=== PATIENT | male | born 1945 | race Caucasian/White ===

== ENCOUNTER 2018-02-20 14:46 | Inpatient (IN) | payer MEDICARE ==
[2018-02-20] VITALS (11 sets, daily range): BP systolic 112–148; BP diastolic 54–76; PULSE 58–70; RESP 18–20; TEMP 98; O2SAT 92–98
[~2018-02-20] VITALS: Ht 175.3 cm; Wt 93.5 kg
--- NOTE | 2018-02-20 15:12 | PD ---
HPI Chief Complaint: Chest Pain Time Seen by Provider: 14:49 Travel History International Travel<30 days: No Contact w/Intl Traveler<30days: No Traveled to known affect area: No History of Present Illness HPI Patient is a 72-year-old male presenting to emerge from for evaluation of chest pain. Patient states it started last night after he had ingested a lot of dairy products. Shortly after it started he had to have a bowel movement but stated it was not diarrhea. He also stated he made himself vomit because he thought that would make him feel better. Despite these efforts patient continued to have anterior chest wall pain, there was no radiation, no shortness of breath, no diaphoresis no nausea. Patient reports his pain is a 3 out of 10, burning and pressure-like. He was given 324 mg of aspirin by fire rescue, he had one spray of nitroglycerin. This did not alleviate his symptoms or pain. Patient reports that he has an active lifestyle and has no activity intolerance. Symptoms are not exacerbated nor are they alleviated by anything. Symptom onset was sudden, constant in nature. PFSH Past Medical History Hypertension: Yes Renal Failure: Yes (Stage III kidney disease) Tetanus Vaccination: > 5 Years Influenza Vaccination: Yes ?: Not Past Surgical History Other Surgery: Yes (Left leg surgery) Social History Alcohol Use: Yes (seldom) Tobacco Use: No Substance Use: No Allergies-Medications (Allergen,Severity, Reaction): Coded Allergies: Penicillins (Verified Allergy, Intermediate, Swelling, 02/20/18) Review of Systems Except as stated in HPI: all other systems reviewed are Neg General / Constitutional: No: Fever Eyes: No: Blurred Vision HENT: No: Headaches, Lightheadedness Cardiovascular: Positive: Chest Pain or Discomfort, No: Palpitations, Tachycardia, Diaphoresis, Syncope, Dyspnea on exertion, Edema Respiratory: No: Cough, Shortness of Breath Gastrointestinal: Positive: Indigestion, No: Nausea, Vomiting, Diarrhea, Abdominal Pain, Loss of Appetite Neurologic: No: Dizziness, Syncope, Focal Abnormalities Physical Exam Narrative GENERAL: Well-developed, well-nourished, well-appearing male. Presenting in no acute distress. SKIN: Warm and dry. HEAD: Atraumatic. Normocephalic. EYES: Pupils equal and round. No scleral icterus. No injection or drainage. ENT: No nasal bleeding or discharge. Mucous membranes pink and moist. NECK: Trachea midline. No JVD. CARDIOVASCULAR: Regular rate and rhythm. RESPIRATORY: No accessory muscle use. Clear to auscultation. Breath sounds equal bilaterally. GASTROINTESTINAL: Abdomen soft, non-tender, nondistended. Hepatic and splenic margins not palpable. MUSCULOSKELETAL: Extremities without clubbing, cyanosis, or edema. No obvious deformities. NEUROLOGICAL: Awake and alert. No obvious cranial nerve deficits. Motor grossly within normal limits. Five out of 5 muscle strength in the arms and legs. Normal speech. PSYCHIATRIC: Appropriate mood and affect; insight and judgment normal. Data Data Last Documented VS Vital Signs Date Time Temp Pulse Resp B/P (MAP) Pulse Ox O2 Delivery O2 Flow Rate FiO2 02/20/18 16:25 60 18 148/76 (100) 98 Room Air 02/20/18 16:23 21 Orders Orders Electrocardiogram (02/20/18 14:59) Ckmb (Isoenzyme) Profile (02/20/18 14:59) Complete Blood Count With Diff (02/20/18 14:59) Comprehensive Metabolic Panel (02/20/18 14:59) Magnesium (Mg) (02/20/18 14:59) Prothrombin Time / Inr (Pt) (02/20/18 14:59) Act Partial Throm Time (Ptt) (02/20/18 14:59) Troponin I (02/20/18 14:59) Lipase (02/20/18 14:59) Ecg Monitoring (02/20/18 14:59) Bilateral Bp Monitoring (02/20/18 14:59) Iv Access Insert/Monitor (02/20/18 14:59) Oximetry (02/20/18 14:59) Oxygen Administration (02/20/18 14:59) Chest, Pa & Lat (02/20/18 14:59) CKMB (02/20/18 15:02) CKMB% (02/20/18 15:02) Nitroglycerin-D5w 50 Mg/250 Ml (Nitrogly (02/20/18 16:30) Heparin Inj (Heparin Inj) (02/20/18 16:30) Heparin-D5w 25,000 U/250 Ml (Heparin-D5w (02/20/18 16:30) Cbc No Diff, Includes Plts (02/23/18 06:00) Act Partial Throm Time (Ptt) (02/20/18 23:16) Occult Blood (Hemoccult) Stool (02/20/18 16:16) Admit Order (Ed Use Only) (02/20/18 16:34) Labs Laboratory Tests Test 02/20/18 15:02 White Blood Count 13.1 TH/MM3 Red Blood Count 4.57 MIL/MM3 Hemoglobin 13.7 GM/DL Hematocrit 40.3 % Mean Corpuscular Volume 88.3 FL Mean Corpuscular Hemoglobin 30.1 PG Mean Corpuscular Hemoglobin Concent 34.0 % Red Cell Distribution Width 13.6 % Platelet Count 205 TH/MM3 Mean Platelet Volume 9.0 FL Neutrophils (%) (Auto) 73.7 % Lymphocytes (%) (Auto) 20.3 % Monocytes (%) (Auto) 5.7 % Eosinophils (%) (Auto) 0.2 % Basophils (%) (Auto) 0.1 % Neutrophils # (Auto) 9.7 TH/MM3 Lymphocytes # (Auto) 2.7 TH/MM3 Monocytes # (Auto) 0.8 TH/MM3 Eosinophils # (Auto) 0.0 TH/MM3 Basophils # (Auto) 0.0 TH/MM3 CBC Comment DIFF FINAL Differential Comment Prothrombin Time 10.4 SEC Prothromb Time International Ratio 1.0 RATIO Activated Partial Thromboplast Time 27.9 SEC Blood Urea Nitrogen 21 MG/DL Creatinine 1.59 MG/DL Random Glucose 147 MG/DL Total Protein 7.0 GM/DL Albumin 3.4 GM/DL Calcium Level 7.9 MG/DL Magnesium Level 2.2 MG/DL Alkaline Phosphatase 77 U/L Aspartate Amino Transf (AST/SGOT) 348 U/L Alanine Aminotransferase (ALT/SGPT) 55 U/L Total Bilirubin 0.5 MG/DL Sodium Level 138 MEQ/L Potassium Level 4.1 MEQ/L Chloride Level 104 MEQ/L Carbon Dioxide Level 24.8 MEQ/L Anion Gap 9 MEQ/L Estimat Glomerular Filtration Rate 43 ML/MIN Total Creatine Kinase 2178 U/L Creatine Kinase MB 368.6 NG/ML Creatine Kinase MB % 16.9 % Troponin I GREATER THAN 40.00 NG/ML Lipase 171 U/L MDM Medical Decision Making Medical Screen Exam Complete: Yes Emergency Medical Condition: Yes Interpretation(s) Vital Signs Date Time Temp Pulse Resp B/P (MAP) Pulse Ox O2 Delivery O2 Flow Rate FiO2 02/20/18 15:03 98 Room Air 02/20/18 15:03 98 Room Air 02/20/18 14:57 68 96 02/20/18 14:57 64 18 124/62 (82) 98 Room Air 02/20/18 14:50 62 18 124/62 (82) 96 Differential Diagnosis ACS versus USA versus indigestion versus metabolic abnormality versus arrhythmia versus other Narrative Course Patient is a 72-year-old male presenting to the emergency department for evaluation of chest pain. Patient's vital signs are stable, IV access was established, patient placed on telemetry monitoring continuous pulse oximetry. Patient was given nitroglycerin and aspirin by [facility]. Labs and imaging ordered and pending. Chest x-ray shows no acute disease. CBC with a white count of 13.1 with slight left shift Chemistry with BUN and creatinine 21/1.59, AST 348, CK 2178 Troponin resulted greater than 40, CK-MB is 16.9, these findings were relayed to my attending physician who then discussed with on-call ciaio counter molder. A STEMI alert was activated. Please see his documentation. A nitroglycerin drip as well as heparin drip was ordered. Diagnosis Primary Impression: NSTEMI (non-ST elevated myocardial infarction) Admitting Information Admitting Physician Requests: Admit Condition: Stable Steph Boswell Feb 20, 2018 15:12
[2018-02-20 15:24] LABS: AUTOMATED NEUTROPHIL # 9.7 TH/MM3 (1.8-7.7); BASOPHIL % 0.1 % (0.0-2.0); EOSINOPHIL % 0.2 % (0.0-4.0); HEMATOCRIT 40.3 % (39.0-51.0); HEMOGLOBIN 13.7 GM/DL (13.0-17.0); LYMPH % 20.3 % (9.0-44.0); LYMPHOCYTE # 2.7 TH/MM3 (1.0-4.8); MEAN CELL VOLUME 88.3 FL (80.0-100.0); MEAN CORPUSCULAR HEMOGLOBIN 30.1 PG (27.0-34.0); MONO % 5.7 % (0.0-8.0); MONOCYTE # 0.8 TH/MM3 (0-0.9); NEUT % 73.7 % (16.0-70.0); PLATELET COUNT 205 TH/MM3 (150-450); RED BLOOD COUNT 4.57 MIL/MM3 (4.50-5.90); RED CELL DISTRIBUTION WIDTH 13.6 % (11.6-17.2); WHITE BLOOD COUNT 13.1 TH/MM3 (4.0-11.0)
--- NOTE | 2018-02-20 15:24 | RADRPT ---
EXAM DATE: 02/20/2018 3:21 PM EDT AGE/SEX: 72 years / Male INDICATIONS: Chest pain. CLINICAL DATA: This is the patient's initial encounter. Patient reports that signs and symptoms have been present for 1 day and indicates a pain score of 5/10. MEDICAL/SURGICAL HISTORY: Hypertension. . ORIF Left Tib/Fib. COMPARISON: No prior exams available for comparison. FINDINGS: PA and lateral views of the chest demonstrate the lungs to be symmetrically aerated without evidence of mass, infiltrate or effusion. No evidence of pneumothorax. The cardiomediastinal contours are unre markable. Mild degenerative changes throughout the thoracic spine.. CONCLUSION: The lungs are clear. Electronically signed by: Gabe Villanueva MD 02/20/2018 3:23 PM EDT
[2018-02-20 15:44] LABS: ALBUMIN 3.4 GM/DL (3.4-5.0); ALT (GPT) 55 U/L (12-78); AST (GOT) 348 U/L (15-37); BICARBONATE 24.8 MEQ/L (21.0-32.0); BLOOD UREA NITROGEN 21 MG/DL (7-18); CALCIUM 7.9 MG/DL (8.5-10.1); CHLORIDE 104 MEQ/L (98-107); CREATININE 1.59 MG/DL (0.60-1.30); GLOMERULAR FILTRATION RATE 43 ML/MIN (>89); GLUCOSE,RANDOM 147 MG/DL (74-106); MAGNESIUM 2.2 MG/DL (1.5-2.5); SODIUM (NA) 138 MEQ/L (136-145)
[2018-02-20 15:48] LABS: PROTHROMBIN TIME - PATIENT 10.4 SEC (9.8-11.6)
[2018-02-20 15:58] LABS: ALKALINE PHOSPHATASE 77 U/L (45-117); TOTAL BILIRUBIN ADULT 0.5 MG/DL (0.2-1.0)
[2018-02-20 16:05] LABS: TROPONIN I GREATER THAN 40.00 NG/ML (0.02-0.05)
--- NOTE | 2018-02-20 16:28 | PD ---
Physical Exam Date Seen by Provider: Feb 20, 2018 Time Seen by Provider: 16:22 Narrative The patient is a 72-year-old male who was initially evaluated by the mid-level provider. Please refer to the initial history, physical, diagnostic evaluation , and treatment modality plan. Data Data Last Documented VS Vital Signs Date Time Temp Pulse Resp B/P (MAP) Pulse Ox O2 Delivery O2 Flow Rate FiO2 02/20/18 15:03 98 Room Air 02/20/18 15:03 02/20/18 14:57 68 02/20/18 14:57 18 Orders Orders Electrocardiogram (02/20/18 14:59) Ckmb (Isoenzyme) Profile (02/20/18 14:59) Complete Blood Count With Diff (02/20/18 14:59) Comprehensive Metabolic Panel (02/20/18 14:59) Magnesium (Mg) (02/20/18 14:59) Prothrombin Time / Inr (Pt) (02/20/18 14:59) Act Partial Throm Time (Ptt) (02/20/18 14:59) Troponin I (02/20/18 14:59) Lipase (02/20/18 14:59) Ecg Monitoring (02/20/18 14:59) Bilateral Bp Monitoring (02/20/18 14:59) Iv Access Insert/Monitor (02/20/18 14:59) Oximetry (02/20/18 14:59) Oxygen Administration (02/20/18 14:59) Chest, Pa & Lat (02/20/18 14:59) CKMB (02/20/18 15:02) CKMB% (02/20/18 15:02) Nitroglycerin-D5w 50 Mg/250 Ml (Nitrogly (02/20/18 16:30) Heparin Inj (Heparin Inj) (02/20/18 16:30) Heparin-D5w 25,000 U/250 Ml (Heparin-D5w (02/20/18 16:30) Cbc No Diff, Includes Plts (02/23/18 06:00) Act Partial Throm Time (Ptt) (02/20/18 23:16) Occult Blood (Hemoccult) Stool (02/20/18 16:16) Labs Laboratory Tests Test 02/20/18 15:02 White Blood Count 13.1 TH/MM3 Red Blood Count 4.57 MIL/MM3 Hemoglobin 13.7 GM/DL Hematocrit 40.3 % Mean Corpuscular Volume 88.3 FL Mean Corpuscular Hemoglobin 30.1 PG Mean Corpuscular Hemoglobin Concent 34.0 % Red Cell Distribution Width 13.6 % Platelet Count 205 TH/MM3 Mean Platelet Volume 9.0 FL Neutrophils (%) (Auto) 73.7 % Lymphocytes (%) (Auto) 20.3 % Monocytes (%) (Auto) 5.7 % Eosinophils (%) (Auto) 0.2 % Basophils (%) (Auto) 0.1 % Neutrophils # (Auto) 9.7 TH/MM3 Lymphocytes # (Auto) 2.7 TH/MM3 Monocytes # (Auto) 0.8 TH/MM3 Eosinophils # (Auto) 0.0 TH/MM3 Basophils # (Auto) 0.0 TH/MM3 CBC Comment DIFF FINAL Differential Comment Prothrombin Time 10.4 SEC Prothromb Time International Ratio 1.0 RATIO Activated Partial Thromboplast Time 27.9 SEC Blood Urea Nitrogen 21 MG/DL Creatinine 1.59 MG/DL Random Glucose 147 MG/DL Total Protein 7.0 GM/DL Albumin 3.4 GM/DL Calcium Level 7.9 MG/DL Magnesium Level 2.2 MG/DL Alkaline Phosphatase 77 U/L Aspartate Amino Transf (AST/SGOT) 348 U/L Alanine Aminotransferase (ALT/SGPT) 55 U/L Total Bilirubin 0.5 MG/DL Sodium Level 138 MEQ/L Potassium Level 4.1 MEQ/L Chloride Level 104 MEQ/L Carbon Dioxide Level 24.8 MEQ/L Anion Gap 9 MEQ/L Estimat Glomerular Filtration Rate 43 ML/MIN Total Creatine Kinase 2178 U/L Troponin I GREATER THAN 40.00 NG/ML Lipase 171 U/L [facility] Medical Record Reviewed: Yes Supervised Visit with KYMBERLY: Yes Interpretation(s) EKG reveals sinus bradycardia with a heart rate of 58. Q-wave in lead II, III, and aVF with hyper acute T waves in V2. Last Impressions Chest X-Ray 02/20/18 9622 Signed Impressions: CONCLUSION: The lungs are clear. Laboratory Tests Test 02/20/18 15:02 White Blood Count 13.1 TH/MM3 Red Blood Count 4.57 MIL/MM3 Hemoglobin 13.7 GM/DL Hematocrit 40.3 % Mean Corpuscular Volume 88.3 FL Mean Corpuscular Hemoglobin 30.1 PG Mean Corpuscular Hemoglobin Concent 34.0 % Red Cell Distribution Width 13.6 % Platelet Count 205 TH/MM3 Mean Platelet Volume 9.0 FL Neutrophils (%) (Auto) 73.7 % Lymphocytes (%) (Auto) 20.3 % Monocytes (%) (Auto) 5.7 % Eosinophils (%) (Auto) 0.2 % Basophils (%) (Auto) 0.1 % Neutrophils # (Auto) 9.7 TH/MM3 Lymphocytes # (Auto) 2.7 TH/MM3 Monocytes # (Auto) 0.8 TH/MM3 Eosinophils # (Auto) 0.0 TH/MM3 Basophils # (Auto) 0.0 TH/MM3 CBC Comment DIFF FINAL Differential Comment Prothrombin Time 10.4 SEC Prothromb Time International Ratio 1.0 RATIO Activated Partial Thromboplast Time 27.9 SEC Blood Urea Nitrogen 21 MG/DL Creatinine 1.59 MG/DL Random Glucose 147 MG/DL Total Protein 7.0 GM/DL Albumin 3.4 GM/DL Calcium Level 7.9 MG/DL Magnesium Level 2.2 MG/DL Alkaline Phosphatase 77 U/L Aspartate Amino Transf (AST/SGOT) 348 U/L Alanine Aminotransferase (ALT/SGPT) 55 U/L Total Bilirubin 0.5 MG/DL Sodium Level 138 MEQ/L Potassium Level 4.1 MEQ/L Chloride Level 104 MEQ/L Carbon Dioxide Level 24.8 MEQ/L Anion Gap 9 MEQ/L Estimat Glomerular Filtration Rate 43 ML/MIN Total Creatine Kinase 2178 U/L Troponin I GREATER THAN 40.00 NG/ML Lipase 171 U/L Differential Diagnosis Differential diagnosis includes STEMI, acute coronary syndrome, subacute STEMI, pericardial effusion, pleural effusion, pneumonia, pulmonary embolism, esophageal spasm, gastritis, pancreatitis. Narrative Course The patient was initially evaluated by the mid-level provider. Please refer to the initial history, physical, diagnostic evaluation, treatment modality plan. The patient is currently visiting from [place]. He was eating yogurt yesterday when he developed some substernal to right-sided chest pain. He describes the pain as a dull pressure-like sensation. The patient states he tried to induce vomiting because he thought it was food poisoning secondary to eating the yogurt. He also had to have a bowel movement immediately, felt like he was having food poisoning. He then became diaphoretic. The patient states he went to bed last night with chest pain and when he awakened this morning he continued to have chest pain. The chest pain is located in the right aspect of the chest, as described as a "elephant sitting on my chest ", and radiating to the arms bilaterally. He denies any nausea or shortness of breath today. He does have a history of CKD and hypertension but denies any history of known hyperlipidemia, he quit smoking 10 tobacco 10 years ago, and is described as a borderline diabetic. He denies any known history of coronary artery disease or previous myocardial infarction. He does not have a local primary physician. The patient was initially brought in by EMS who gave her nitroglycerin with no relief of his pain and aspirin. The patient was then evaluated by the mid- level provider. EKG did reveal Q waves in lead II, III, and aVF, no old EKGs to compare. He did have a peaked T-wave in V2 not seen in other leads. The patient's troponin was noted to be greater than 40, I discussed the patient with Dr. Flores who requested we call a STEMI alert the patient could go to [facility] immediately. The patient was administered a heparin bolus and placed on a nitro drip. I discussed the findings with family, patient will be admitted. Critical Care Narrative Aggregate critical care time was 35 minutes. Time to perform other separately billable procedures was not included in the critical care time. My time did not include minutes spent treating any other patients simultaneously or on activities that did not directly contribute to the patient's treatment. The services I provided to this patient were to treat and/or prevent clinically significant deterioration that could result in: Arrhythmia, ventricular aneurysm , ventricular rupture, sudden . I provided critical care services requiring my management, as noted below: Chart data review, documentation time, medication orders and management, vital sign assessments/reviewing monitor data, ordering and reviewing lab tests, ordering and interpreting/reviewing x-rays and diagnostic studies, care of the patient and discussion of the patient with the admitting physicians. Physician Communication Physician Communication I discussed the patient with Dr. Flores her request because STEMI so patient go go immediately to the [facility] Director, he does have a hyperacute T-wave in V2, I believe this is reasonable. Diagnosis Primary Impression: NSTEMI (non-ST elevated myocardial infarction) Admitting Information Admitting Physician Requests: Admit Condition: Stable Domenic Blankenship MD Feb 20, 2018 16:28
[2018-02-20] MEDS ORDERED: NITROGLYCERIN-D5W 50 MG/250 ML 250 ML IV PRN (16:30)
[2018-02-20] MEDS ORDERED: HEPARIN-D5W 25,000 U/250 ML 250 ML IV PRN (16:30)
[2018-02-20] MEDS ORDERED: HEPARIN SODIUM - IV 10,000 UNITS/10 ML VIAL IV PUSH ONE (16:30)
[2018-02-20] MEDS ORDERED: MIDAZOLAM HCL 2 MG/2 ML VIAL ONE (16:43)
[2018-02-20] MEDS ORDERED: HEPARIN-NS/PF INJ 1,000 ML ONE (16:43)
[2018-02-20] MEDS ORDERED: HEPARIN SODIUM - IV 10,000 UNITS/10 ML VIAL ONE (16:44)
--- NOTE | 2018-02-20 17:40 | MB ---
cc: Epi Flores MD, Arthur W MD DATE: 02/20/2018 HISTORY OF PRESENT ILLNESS: Van is a very pleasant 71-year-old gentleman visiting here from [place]. He was eating yogurt last night and developed chest pain. It lasted through the night and into today. He came to the ER, still having chest pain though improved. He is somewhat of an unforthcoming historian. He appears comfortable, in no acute distress. He was found to have a troponin of 40 in the ER, Q-waves in the inferior leads. He otherwise denies any fevers, chills, cough, GI or bleeding, paroxysmal nocturnal dyspnea, orthopnea, syncope or dizziness. PAST MEDICAL HISTORY: Per history of present illness. He has a history of hypertension, stage III chronic renal insufficiency. SOCIAL HISTORY: Seldom drinks alcohol. Denies tobacco use. ALLERGIES: PENICILLIN. MEDICATIONS: Given in the ER, aspirin, heparin bolus and drip, nitro drip. PHYSICAL EXAMINATION: VITAL SIGNS: Blood pressure 148/86, pulse 86, respiratory rate 18, saturations 98% on room air. GENERAL: He is alert and oriented x3, in no acute distress. NECK: Supple. No JVD. No bruit. CARDIOVASCULAR: S1, S2. No murmurs, rubs, gallops. LUNGS: Clear to auscultation bilaterally. ABDOMEN: Soft, nontender, nondistended with positive bowel sounds. EXTREMITIES: No lower extremity edema. IMAGING STUDIES: Chest x-ray shows the lungs are clear. CARDIOLOGY STUDIES: EKG shows normal sinus rhythm at 58 beats per minute, Q-waves in the inferior leads with T-wave inversion in lead 3 and aVF. LABORATORY DATA: White count 13.1, hemoglobin 13.7, hematocrit 40.3, platelet count is 205. Sodium 138, potassium 4.1, chloride 104, bicarbonate 24.8, BUN 21, creatinine 1.59. AST is 348, ALT 55. CK is 2178, CK-MB percent is 16.9%. Troponin is 40.0. INR is 1.0. DIAGNOSES: Subacute ST elevation myocardial infarction. The patient already has Q-waves in the inferior leads with T-wave inversions; however, he is still having active chest pain. Therefore, I do think left heart catheterization is emergently indicated. STEMI has been called. He has received aspirin, heparin, IV nitro in the emergency room. Further recommendations based on the details of his cardiac catheterization. Also note, the patient is being prebolused with 1 liter of normal saline prior to catheterization. MD GINNA Koenig/ , 05:15 PM , 05:39 PM
[2018-02-20] MEDS ORDERED: TIROFIBAN INFUSION INJ 250 ML IV ONE (18:19)
[2018-02-20] MEDS ORDERED: PRASUGREL 10 MG TAB ONE (18:20)
--- NOTE | 2018-02-20 19:37 | CATHPROC ---
[facility] HIS Report Study Information Study Number Admission Scheduled Start Study Start [id number] Feb 20 2018 2:46PM 02/20/2018 Feb 20 2018 4:45PM [place] [facility] Cardiac Catheterization Admit Source Facility Department Emergency department [facility] - Index Editor Physician and Clinical Staff Initial Epi Anderson Backshoe Person Mayra Victoria,TERELL Backshoe PersonNaty Robles,TERELL Recorder Edna Duron,RT(R) Scrub Elaine Paris ,RT(R) Procedures Performed Procedure Location (Site) Vessel Name Angiogram LV Asc. Aorta (A) Coronary Angiograms LCA Left Coronary L Heart Cath LV Gram-hand inj. LV LV Ventricle PTCA CIRC Mid CIRC PTCA RCA Dist Right Coronary Stent CIRC Mid CIRC Stent RCA Dist Right Coronary Wire insertion Fem Art (right) Femoral Art Equipment Time Optical Designer Description Size Mfg Part Number Used/Scraped [id number] 17:50 [employer] WIRE, ASAHI PROWATER 180CM 180CM Used *[id number] 18:40 [employer] WIRE, ASAHI PROWATER 180CM 180CM Used *[id number] TRANSDUCER, TRUWAVE [id number] 16:52 PENA HENNESSY * Used W/STOCKCOCK *[id number] 17:56 [employer]IRE, CHOICE PT 182CM 182CM Used *0827631 538-476 *1752637 [phone] *6019549 538-446 *0107893 [phone] *2041640 538-448 *1446533 [phone] *7788638 538-420 *4110442 538-421 *3998459 538-442 *6756388 538-453S *2814906 [phone] *[id number] MEDICAL CONCEPT DRAPE, RADIAL FEMORAL FULL 18:05 * [id number] *[id number] Used DEVELOPMENT BODY [id number] 16:52 [employer] INDUSTRIES BLANKET,WARM AIR CCL * Used *[id number] [id number] 16:52 [employer] INDUSTRIES PACK, CCL CUSTOM * Used *3542454 [id number] 16:52 MEDLINE PACER PEN, SKIN DUAL W/ RULER * Used *[id number] [id number] 17:55 MEDTRONIC BALLOON, 2.5 X 10MM EUPHORA 10MM Used *6003272 [id number] 18:55 MEDTRONIC BALLOON, 2.5 X 10MM EUPHORA 10MM Used *0416960 [id number] 19:03 MEDTRONIC STENT, 2.5 22 INTEGRITY 2.5 22 Used *0348233 [id number] 18:18 MEDTRONIC STENT, 2.5 8 INTEGRITY 2.5 8 Used *5781427 [id number] 18:13 MEDTRONIC STENT, 2.5 8 INTEGRITY 2.5 8 Used *5616775 [id number] 19:12 MEDTRONIC STENT, 2.5 8 INTEGRITY 2.5 8 Used *3017499 [id number] 18:06 [employer] MEDICAL 30 CORTEZ INDEFLATOR Used *1786937 [id number] 17:52 [employer] SHEATH, FR6.5 PRELUDE 11CM FR 6.5 038ACT Used *9076917 [id number] 16:52 [employer] WIRE, 3MMJ .035 180CM 180CM Used *4060289 [id number] 16:52 NAMIC MANIFOLD, 4 PORT * Used *2816447 [id number] 17:45 NAMIC MANIFOLD, 4 PORT * Used *[id number] 18:03 [employer] OMNIPAQUE, 350 MG, 150ML 150ML [id number] Used 16:52 [employer] OMNIPAQUE, 350 MG, 150ML 150ML [id number] Used 19:08 [employer]ED OMNIPAQUE, 350 MG, 150ML 150ML [id number] Used 19:11 [employer]ED OMNIPAQUE, 350 MG, 150ML 150ML [id number] Used 18:41 [employer]COMED OMNIPAQUE, 350 MG, 150ML 150ML [id number] Used 18:15 NYCOMED OMNIPAQUE, 350 MG, 50ML 50ML [id number] Used [id number] 16:52 TERUMO MEDICAL SHEATH, FR4 TERUMO (10CM) FR 4 Used *[id number] Equipment Model, Serial, Lot Number and Expiration Data Description Model Number Serial Number Lot Number Expiration Date STENT, 2.5 22 INTEGRITY [id number] 06-22-2019 STENT, 2.5 8 INTEGRITY [id number] 12-22-2019 STENT, 2.5 8 INTEGRITY [id number] 05-22-2019 STENT, 2.5 8 INTEGRITY [id number] 12-22-2019 WIRE, CHOICE PT 182CM [id number] 10-13-2019 History: Allergies Allergy Reaction Penicillins Swelling History: Stress Tests Stress or Imaging Studies Performed No Labs Hgb (g/dl) Hct (%) WBC (l/cumm) Platelets (thousands) 11.60-17.00 35.00-51.00 4.00-11.00 150.00-450.00 13.7 40.3 13.1 205 Glucose (mg/dl) BUN (mg/dl) Creatinine (mg/dl) BUN:Creatinine (1:x) 74.00-106.00 7.00-18.00 0.50-1.30 10.00-20.00 147 21 1.6 13.1 Na (meq/l) K (meq/l) 136.00-145.00 3.50-5.10 138 4.1 INR (PTT:PT) 0.90-1.10 1 Troponin I (ng/ml) CPK (u/l) CPK-MB (ng/ML) 0.02-0.05 26.00-308.00 0.50-3.60 40 368 16.9 Medication Medication Total Dose (Bolus/Oral) Medication Total Dosage/Unit 1% XYLOCAINE 20 mL AGGRASTAT BOLUS 46 mL EFFIENT 600 mg FENTANYL 50 mcg HEPARIN 6000 units OXYGEN 3 l/min VERSED 2 mg Medications (Bolus/Oral) Medication Time Given Dosage/Unit Administered By Reason 1% XYLOCAINE 02/20/2018 5:05:10 PM 20 mL Epi Flores 20 mL 1% XYLOCAINE given in lab by Epi Flores in Right Groin via Subcutaneous. VERSED 02/20/2018 5:05:37 PM 1 mg Mayra Victoria 1 mg VERSED given in lab by Mayra Victoria RN in Left Antecubital via Peripheral IV. Ordered by Epi Francisco. FENTANYL 02/20/2018 5:06:06 PM 25 mcg Mayra Victoria 25 mcg FENTANYL given in lab by Mayra Victoria RN in Left Antecubital via Peripheral IV. Ordered by Epi Flores. VERSED 02/20/2018 5:44:19 PM 1 mg Mayra Victoria 1 mg VERSED given in lab by Mayra Victoria RN in Left Antecubital via Peripheral IV. Ordered by Epi Francisco. FENTANYL 02/20/2018 5:45:24 PM 25 mcg Mayra Victoria 25 mcg FENTANYL given in lab by Mayra Victoria RN in Left Antecubital via Peripheral IV. Ordered by Epi Flores. HEPARIN 02/20/2018 5:47:38 PM 2000 units Mayra Victoria 2000 units HEPARIN given in lab by Mayra Victoria RN in Left Antecubital via Peripheral IV. Ordered by Epi Flores. HEPARIN 02/20/2018 5:58:26 PM 2000 units Naty Galindo 2000 units HEPARIN given in lab by Naty Galindo RN in Left Antecubital via Peripheral IV. Ordered by Epi Flores. AGGRASTAT BOLUS 02/20/2018 6:28:10 PM 46 mL Mayra Victoria 46 mL AGGRASTAT BOLUS given in lab by Mayra Victoria RN in Left Antecubital via Peripheral IV. Orde red by Epi Flores. HEPARIN 02/20/2018 6:39:53 PM 2000 units Mayra Victoria 2000 units HEPARIN given in lab by Mayra Victoria RN in Left Antecubital via Peripheral IV. Ordered by Epi Flores. EFFIENT 02/20/2018 6:40:19 PM 600 mg Mayra Victoria 600 mg EFFIENT given in lab by Mayra Victoria RN via Oral. Ordered by Epi Flores. OXYGEN 02/20/2018 6:51:41 PM 3 l/min Naty Galindo 3 l/min OXYGEN given in lab by Naty Galindo RN via Nasal. Ordered by Epi Flores. Medication (Drip) Medication Time Given Dosage/Unit Concentration/Unit Diluent (ml) Solution AGGRASTAT DRIP 02/20/2018 6:32:21 PM 0.077 mcg/kg/min 12.5 mg 250 NaCl .9 0.077 mcg/kg/min AGGRASTAT DRIP given in lab by Mayra Victoria RN in Left Antecubital via Periphera l IV. Pump/Drip Flow = 8.25 ml/hr using NaCl .9 with a concentration of 12.5 mg in 250 ml. Ordered by Epi Flores. IV Bolus 02/20/2018 5:15:51 PM 500 mL (Bolus) D5W .45 NaCl 500 mL (Bolus) IV Bolus given in lab by Mayra Victoria, TERELL in Left Antecubital via Peripheral IV. Us ing D5W .45 NaCl. Ordered by Epi Flores. IV Bolus 02/20/2018 6:35:57 PM 500 mL (Bolus) D5W .45 NaCl 500 mL (Bolus) IV Bolus given in lab by Mayra Victoria, TERELL in Left Antecubital via Peripheral IV. Us ing D5W .45 NaCl. Ordered by Epi Flores. IV Solutions 02/20/2018 4:48:19 PM 50 mL (IV) NaCl .9 IV Solutions given in lab by Mayra Victoria, TERELL in Left Antecubital via Peripheral IV. Pump/Drip Isreal w using NaCl .9. NIPRIDE 02/20/2018 7:09:14 PM 100 mcg 100 mcg NIPRIDE given in lab by Epi Flores in Right Groin via Intra-coronary. NIPRIDE 02/20/2018 7:10:17 PM 200 mcg 200 mcg NIPRIDE given in lab by Epi Flores in Right Groin via Intra-coronary. NITROGLYCERIN DRIP 02/20/2018 4:50:19 PM 5 mcg/min 50 mg 250 D5W Patient arrived on 5 mcg/min NITROGLYCERIN DRIP in Left Antecubital via Peripheral IV. Pump/Drip Flow = 1.5 ml/hr using D5W with a concentration of 50 mg in 250 ml. NITROGLYCERN DRIP 02/20/2018 7:13:16 PM 5 mcg/min g 0 STOPPED 5 mcg/min NITROGLYCERN DRIP STOPPED given in lab by Mayra Victoria, TERELL in Left Antecubital via Perip heral IV. Pump/Drip Flow = 0 ml/hr using [Solution Name]. Ordered by Epi Flores. Initial Case Assessment Cardiovascular HR Chest Pain 56 2 Edema Present Skin color Skin None Normal Warm Dry Circulatory - Right Pulses Dorsalis Pedis Femoral 2 2 Scale (0,1,2,3,4,d) Circulatory - Left Pulses Dorsalis Pedis Femoral 2 2 Scale (0,1,2,3,4,d) Neurological State Oriented to time-place- Alert Moves all extremities person Respiration - General Respiration Rate SpO2 (%) (B/min) 10 99 Chronological Log Time Study Chronological Log 16:42:00 Pt and ED nurses waiting in field laborer upon team's arrival. 16:42:52 Patient arrived via Bed. 16:48:19 IV Solutions given in lab by Mayra Victoria, RN in Left Antecubital via Peripheral IV. Pum p/Drip Flow using NaCl .9. 16:49:56 Patient Name, D.O.B, / Armband Verified By R.N. 16:49:57 Consent signed by the physician and the patient and verified by the Index Editor staff. 16:49:59 Verbal Stimulation=2 Physical Stimulation=2 Airway=2 Respiration=2 TOTAL=8. (0=absent, 1=li mited, 2=present) 16:50:01 Presedation assessment performed by Index Editor RN. 16:50:03 Patient has been NPO for More than 6Hrs. 16:50:05 Skin Breakdown- none 16:50:08 Patient Warmer Placed on the Table. 16:50:09 Disposable Defibrillator Pads Placed On Patient. 16:50:10 Jacqui Prominences Protected 16:50:12 A # 20 IV was noted in the Antecubital (left). Grade = 0 Patient arrived on 5 mcg/min NITROGLYCERIN DRIP in Left Antecubital via Peripheral IV. Pump/Dri p Flow = 1.5 ml/hr 16:50:19 using D5W with a concentration of 50 mg in 250 ml. 16:50:34 History and physical on the chart or being dictated. Assessment: Initial Case, HR=56 BPM, Chest Pain=2, Edema=None, Color=Normal, Skin = Warm, Dry Right Pulses: Grzegorz Ped=2, Femoral=2 16:50:38 Left Pulses: Grzegorz Ped=2, Femoral=2 Neurological: State=Alert, Ox3, HAIDER Respiration: Resp=10 B/min, SpO2=99 % Vitals capture started with the following parameters, Patient=Adult, Interval=5 min, Initial Pr mkoxfx=751 mmHg, 16:50:40 Deflation Rate=5 mmHg, Cuff placed on Left Arm 16:51:14 HR=64 bpm, KCLH=351/74 mmhg, SpO2=98.0 %, Resp=8 B/min 16:53:15 Bilateral groins prepped with 2% chlorhexidine, and draped after a 3 minute waiting time. 16:55:58 Reference ECG taken 16:56:19 HR=63 bpm, FCDR=930/73 mmhg, SpO2=99.0 %, Resp=13 B/min 16:56:59 MD paged 16:57:19 MD responded 17:00:02 Pressure channel 1 zeroed. 17:00:17 MD arrived. 17:01:18 HR=57 bpm, MZGP=825/77 mmhg, SpO2=99.0 %, Resp=11 B/min Time Out. Correct patient, correct procedure, correct physician, labs, allergies, and equipment verified with field laborer 17:04:41 team present. Fire risk assesment completed (see hard stop sheet for coding). Time Out Conc urred by MD and individual staff in procedure. 17:05:08 Case Start 17:05:10 20 mL 1% XYLOCAINE given in lab by Epi Flores in Right Groin via Subcutaneous. 17:05:37 1 mg VERSED given in lab by Mayra Victoria, RN in Left Antecubital via Peripheral IV. Orde red by Epi Flores. 25 mcg FENTANYL given in lab by Mayra Victoria, RN in Left Antecubital via Peripheral IV. Orde red by Sandra, 17:06:06 Epi. 17:06:13 Access site was Right Femoral Artery. 17:06:19 HR=58 bpm, QKST=491/74 mmhg, SpO2=99.0 %, Resp=15 B/min 17:06:22 A SHEATH, FR4 TERUMO (10CM) FR 4 was advanced into the Fem Art (right) using the Percutaneo us technique. 17:08:05 Activated Clotting Time Drawn A JR 4.0 INFINITI CATHETER FR 4 was advanced over a wire. OMNIPAQUE, 350 MG, 150ML 150ML was us ed for 17:08:15 injections. Recorded Pressure: LV, HR=58, Condition=Condition 1 17:09:09 (Left Ventricle) LV 118/12/23 Recorded Pressure: LV, Ao, HR=59, Condition=Condition 1 17:09:19 (Left Ventricle) LV 133/14/25, (Aorta) Ao 122/60/83 17:09:23 The LV was manually injected with 8 cc's and visualized. OMNIPAQUE, 350 MG, 150ML 150ML use d. Recorded Pressure: Ao, HR=64, Condition=Condition 1 17:10:04 (Aorta) Ao 123/63/88 17:11:18 HR=58 bpm, PTKB=717/71 mmhg, SpO2=95.0 %, Resp=10 B/min 17:11:42 Catheter was removed 17:15:22 ACT (Normal Range 90-180) = 187 500 mL (Bolus) IV Bolus given in lab by Mayra Victoria, TERELL in Left Antecubital via Peripheral IV. Using D5W .45 NaCl. 17:15:51 Ordered by Epi Flores. 17:16:15 HR=62 bpm, TLSP=777/73 mmhg, SpO2=96.0 %, Resp=15 B/min 17:21:18 HR=55 bpm, JMSH=152/72 mmhg, SpO2=97.0 %, Resp=16 B/min 17:24:06 Vitals capture stopped. Fluoroscopy failure. Disconnected from camtronics and manifold, saline to sheath. Pt moved from table lab 3 into lab 4 17:29:48 via stretcher. Monitors reapplied, site being reprepped. Vitals capture started with the following parameters, Patient=Adult, Interval=5 min, Initial Pr cmotva=806 mmHg, 17:35:18 Deflation Rate=5 mmHg, Cuff placed on Left Arm 17:35:28 Reference ECG taken 17:36:00 HR=54 bpm, NGHJ=175/75 mmhg, SpO2=97.0 %, Resp=16 B/min 17:37:59 Bilateral groins prepped with 2% chlorhexidine, and draped after a 3 minute waiting time. 17:40:08 paged 17:40:21 responded 17:40:55 HR=54 bpm, LJXI=979/74 mmhg, SpO2=98.0 %, Resp=17 B/min 17:42:29 MD arrived. 17:42:56 Pressure channel 1 zeroed. 17:44:19 1 mg VERSED given in lab by Mayra Victoria, RN in Left Antecubital via Peripheral IV. Orde red by Epi Flores. 17:44:21 Case re-Start A JL 5.0 INFINITI CATHETER FR 5 was advanced over a wire. OMNIPAQUE, 350 MG, 150ML 150ML was us ed for 17:44:37 injections. 25 mcg FENTANYL given in lab by Mayra Victoria, TERELL in Left Antecubital via Peripheral IV. Orde red by Sandra, 17:45:24 Epi. 17:45:52 HR=57 bpm, PNCT=124/77 mmhg, SpO2=98.0 %, Resp=17 B/min 17:45:55 The LCA was injected and visualized at various angles. OMNIPAQUE, 350 MG, 150ML 150ML used . 2000 units HEPARIN given in lab by Mayra Victoria RN in Left Antecubital via Peripheral IV. O rdered by Sandra, 17:47:38 Epi. 17:47:45 Catheter was removed A AL 2 INFINITI CATHETER FR 4 was advanced over a wire. OMNIPAQUE, 350 MG, 150ML 150ML was used for 17:48:29 injections. 17:50:59 HR=61 bpm, IUKQ=506/71 mmhg, SpO2=93.0 %, Resp=18 B/min A SHEATH, FR6.5 PRELUDE 11CM FR 6.5 was exchanged in the Fem Art (right). This was necessary in order to 17:51:48 accomodate a larger catheter. After removing the current catheter a XB 4.5 GUIDE CATHETER FR 6 was advanced over a WIRE, 3MMJ .035 180CM 17:52:09 180CM. 17:52:09 Activated Clotting Time Drawn 17:54:43 A WIRE, ASAHI PROWATER 180CM 180CM was inserted via Fem Art (right). 17:55:54 HR=53 bpm, FNVO=029/72 mmhg, SpO2=93.0 %, Resp=23 B/min 17:56:05 ACT (Normal Range 90-180) = 237 17:56:36 Wire removed 17:57:49 A WIRE, CHOICE PT 182CM 182CM was inserted via Fem Art (right). 2000 units HEPARIN given in lab by Naty Galindo RN in Left Antecubital via Peripheral IV. Or dered by Sandra, 17:58:26 Epi. 17:59:28 A BALLOON, 2.5 X 10MM EUPHORA 10MM was inserted over WIRE, CHOICE PT 182CM 182CM via the Fe m Art (right). 18:01:26 HR=56 bpm, JHDO=229/70 mmhg, SpO2=97.0 %, Resp=16 B/min A BALLOON, 2.5 X 10MM EUPHORA 10MM over a WIRE, CHOICE PT 182CM 182CM in the CIRC Mid was infla tim using a 18:05:42 30 CORTEZ INDEFLATOR at 6 cortez for 11 sec. 18:05:56 HR=49 bpm, CWYQ=576/68 mmhg, SpO2=97.0 %, Resp=17 B/min A BALLOON, 2.5 X 10MM EUPHORA 10MM over a WIRE, CHOICE PT 182CM 182CM in the CIRC Mid was infla tim using a 18:09:06 30 CORTEZ INDEFLATOR at 8 cortez for 13 sec. A BALLOON, 2.5 X 10MM EUPHORA 10MM over a WIRE, CHOICE PT 182CM 182CM in the CIRC Mid was infla tim using a 18:09:27 30 CORTEZ INDEFLATOR at 5 cortez for 9 sec. A BALLOON, 2.5 X 10MM EUPHORA 10MM over a WIRE, CHOICE PT 182CM 182CM in the CIRC Mid was infla tim using a 18:09:39 30 CORTEZ INDEFLATOR at 6 cortez for 8 sec. A BALLOON, 2.5 X 10MM EUPHORA 10MM over a WIRE, CHOICE PT 182CM 182CM in the CIRC Mid was infla tim using a 18:09:57 30 CORTEZ INDEFLATOR at 8 cortez for 11 sec. A BALLOON, 2.5 X 10MM EUPHORA 10MM over a WIRE, CHOICE PT 182CM 182CM in the CIRC Mid was infla tmi using a 18:10:16 30 CORTEZ INDEFLATOR at 8 cortez for 10 sec. 18:10:57 HR=49 bpm, JQCI=115/71 mmhg, SpO2=97.0 %, Resp=26 B/min A BALLOON, 2.5 X 10MM EUPHORA 10MM over a WIRE, CHOICE PT 182CM 182CM in the CIRC Mid was infla tim using a 18:11:14 30 CORTEZ INDEFLATOR at 9 cortez for 9 sec. 18:12:05 Balloon Removed. An STENT, 2.5 8 INTEGRITY 2.5 8 Bare Metal Stent was inserted through a XB 4.5 GUIDE CATHETER F R 6 over a 18:14:24 WIRE, CHOICE PT 182CM 182CM. 18:15:56 HR=60 bpm, HQGU=507/82 mmhg, SpO2=95.0 %, Resp=15 B/min A STENT, 2.5 8 INTEGRITY 2.5 8 was deployed using a 30 CORTEZ INDEFLATOR at 9 atmospheres for 9 se conds in the 18:16:13 CIRC Mid. 18:16:29 Delivery device removed An STENT, 2.5 8 INTEGRITY 2.5 8 Bare Metal Stent was inserted through a XB 4.5 GUIDE CATHETER F R 6 over a 18:18:32 WIRE, CHOICE PT 182CM 182CM. A STENT, 2.5 8 INTEGRITY 2.5 8 was deployed using a 30 CORTEZ INDEFLATOR at 12 atmospheres for 17 seconds in the 18:18:59 CIRC Mid. 18:19:47 Delivery device removed 18:20:00 Wire removed 18:20:59 HR=51 bpm, KBWZ=945/77 mmhg, SpO2=97.0 %, Resp=15 B/min 18:21:51 Activated Clotting Time Drawn A PIGTAIL ANG. INFINITI CATHETER FR 4 was advanced over a wire. OMNIPAQUE, 350 MG, 150ML 150ML was used 18:22:41 for injections. 18:25:58 HR=64 bpm, TDIR=883/81 mmhg, SpO2=97.0 %, Resp=13 B/min The Asc. Aorta (A) was injected at 10 cc/sec for a total of 20. OMNIPAQUE, 350 MG, 50ML 50ML us ed. Root shot to 18:26:05 find RCA. 18:27:14 Catheter was removed A AR MOD INFINITI CATHETER FR 4 was advanced over a wire. OMNIPAQUE, 350 MG, 150ML 150ML was us ed for 18:28:09 injections. 46 mL AGGRASTAT BOLUS given in lab by Mayra Victoria, RN in Left Antecubital via Peripheral IV . Ordered by 18:28:10 Epi Flores. 18:28:21 ACT (Normal Range 90-180) = 250 18:30:57 HR=74 bpm, YVPL=103/84 mmhg, SpO2=94.0 %, Resp=17 B/min 18:31:07 Catheter was removed A MPA-2 INFINITI CATHETER FR 4 was advanced over a wire. OMNIPAQUE, 350 MG, 150ML 150ML was use d for 18:31:16 injections. 0.077 mcg/kg/min AGGRASTAT DRIP given in lab by Mayra Victoria RN in Left Antecubital via Per ipheral IV. 18:32:21 Pump/Drip Flow = 8.25 ml/hr using NaCl .9 with a concentration of 12.5 mg in 250 ml. Ordered by Epi Flores. After removing the current catheter a 3DRC INFINITI CATHETER FR 4 was advanced over a WIRE, 3MM J .035 180CM 18:35:02 180CM. 500 mL (Bolus) IV Bolus given in lab by Mayra Victoria RN in Left Antecubital via Peripheral IV. Using D5W .45 NaCl. 18:35:57 Ordered by Epi Flores. 18:36:01 HR=73 bpm, DESK=453/78 mmhg, SpO2=93.0 %, Resp=16 B/min 18:36:38 Catheter was removed A 3DRC INFINITI CATHETER FR 4 was advanced over a wire. OMNIPAQUE, 350 MG, 150ML 150ML was used for 18:39:42 injections. 2000 units HEPARIN given in lab by Mayra Victoria RN in Left Antecubital via Peripheral IV. O rdered by Sandra 18:39:53 Epi. 18:40:19 600 mg EFFIENT given in lab by Mayra Victoria RN via Oral. Ordered by Epi Flores. 18:41:00 HR=81 bpm, ZTTY=065/83 mmhg, SpO2=94.0 %, Resp=17 B/min 18:46:03 HR=85 bpm, TBHU=399/77 mmhg, SpO2=90.0 %, Resp=18 B/min 18:46:33 Catheter was removed 18:46:58 A AL 1 GUIDE CATHETER FR 6 was advanced over a wire. OMNIPAQUE, 350 MG, 150ML 150ML was use d for injections. 18:48:41 Catheter was removed 18:49:00 A AR 1 GUIDE CATHETER FR 6 was advanced over a wire. OMNIPAQUE, 350 MG, 150ML 150ML was use d for injections. 18:50:12 Catheter was removed 18:50:41 A NEFTALY GUIDE CATHETER FR 6 was advanced over a wire. OMNIPAQUE, 350 MG, 150ML 150ML was used for injections. 18:51:04 HR=94 bpm, WTMV=640/80 mmhg, SpO2=89.0 %, Resp=20 B/min 18:51:41 3 l/min OXYGEN given in lab by Naty Galindo RN via Nasal. Ordered by Epi Flores. 18:53:23 A WIRE, ASAHI PROWATER 180CM 180CM was inserted via Fem Art (right). A BALLOON, 2.5 X 10MM EUPHORA 10MM was inserted over WIRE, ASAHI PROWATER 180CM 180CM via the F em Art 18:55:10 (right). 18:56:03 HR=92 bpm, TTAH=966/81 mmhg, SpO2=91.0 %, Resp=24 B/min A BALLOON, 2.5 X 10MM EUPHORA 10MM over a WIRE, ASAHI PROWATER 180CM 180CM in the RCA Dist was inflated 18:58:34 using a 30 CORTEZ INDEFLATOR at 5 cortez for 5 sec. A BALLOON, 2.5 X 10MM EUPHORA 10MM over a WIRE, ASAHI PROWATER 180CM 180CM in the RCA Dist was inflated 18:58:49 using a 30 CORTEZ INDEFLATOR at 9 cortez for 6 sec. A BALLOON, 2.5 X 10MM EUPHORA 10MM over a WIRE, ASAHI PROWATER 180CM 180CM in the RCA Dist was inflated 18:59:04 using a 30 CORTEZ INDEFLATOR at 5 cortez for 7 sec. 19:01:04 HR=67 bpm, GRRC=652/78 mmhg, SpO2=91.0 %, Resp=21 B/min A BALLOON, 2.5 X 10MM EUPHORA 10MM over a WIRE, ASAHI PROWATER 180CM 180CM in the RCA Dist was inflated 19:01:29 using a 30 CORTEZ INDEFLATOR at 5 cortez for 6 sec. 19:02:02 Balloon Removed. 19:02:45 Activated Clotting Time Drawn An STENT, 2.5 22 INTEGRITY 2.5 22 Bare Metal Stent was inserted through a NEFTALY GUIDE CATHETER FR 6 over a 19:03:55 WIRE, ASAHI PROWATER 180CM 180CM. A STENT, 2.5 22 INTEGRITY 2.5 22 was deployed using a 30 CORTEZ INDEFLATOR at 16 atmospheres for 1 6 seconds in 19:05:11 the RCA Dist. 19:06:01 HR=74 bpm, HYSA=301/68 mmhg, SpO2=90.0 %, Resp=23 B/min 19:06:28 Delivery device removed 19:09:14 100 mcg NIPRIDE given in lab by Epi Flores in Right Groin via Intra-coronary. 19:10:17 200 mcg NIPRIDE given in lab by Epi Flores in Right Groin via Intra-coronary. 19:11:08 HR=86 bpm, NIBP=87/42 mmhg, SpO2=92.0 %, Resp=22 B/min An STENT, 2.5 8 INTEGRITY 2.5 8 Bare Metal Stent was inserted through a NEFTALY GUIDE CATHETER FR 6 over a WIRE, 19:12:24 ASAHI PROWATER 180CM 180CM. 5 mcg/min NITROGLYCERN DRIP STOPPED given in lab by Mayra Victoria RN in Left Antecubital vi a Peripheral IV. 19:13:16 Pump/Drip Flow = 0 ml/hr using [Solution Name]. Ordered by Epi Flores. A STENT, 2.5 8 INTEGRITY 2.5 8 was deployed using a 30 CORTEZ INDEFLATOR at 12 atmospheres for 13 seconds in the 19:13:23 RCA Dist. 19:14:00 Re-inflated the stent balloon in the RCA Dist to 16 CORTEZ for 12 seconds. 19:15:06 Delivery device removed 19:15:10 Wire removed 19:15:15 Catheter was removed 19:15:18 Case End (Physician broke scrub) 19:16:25 HR=90 bpm, ADGT=260/84 mmhg, SpO2=90.0 %, Resp=29 B/min 19:21:04 HR=85 bpm, PJHS=081/77 mmhg, SpO2=89.0 %, Resp=30 B/min 19:28:51 In the Fem Art (right) the SHEATH, FR6.5 PRELUDE 11CM FR 6.[address] by Elaine Turpin RT(R) . ::58 Sterile dressing applied to site 19::58 No case complications noted. ::59 Cine recording checked. 19:29:02 Bedside Report will be given. 19:29:04 Implantable Device card placed in patient's chart. 19:29:06 Report called to floor. 19:29:08 A Left Heart Cath was performed. 19:29:09 Patient moved to bed. End Study - Contrast Media Used In Study Contrast Total Opened (mL) Total Used (mL) Total Wasted (mL) Omnipaque 420 420 0 End Study - Maximum Contrast Load Max Contrast Load (mL) 278.1 End Study - Radiation Exposure Fluoro Time (minutes) 36.4 End Study - Patient Disposition Complications Transferred To Interventional Outcome No Telemetry Bed successful
[2018-02-20] MEDS ORDERED: MISC INFORMATION XX ONE (19:45)
[2018-02-20] MEDS ORDERED: SODIUM CHLORIDE 0.9% FLUSH 10 ML FLUSH IV FLUSH PRN (19:45)
[2018-02-20] MEDS ORDERED: PRASUGREL 10 MG TAB PO ONE ×2 (19:45→20:15)
[2018-02-20] MEDS ORDERED: ONDANSETRON HCL 4 MG/2 ML VIAL ONE (19:59)
[2018-02-20] MEDS ORDERED: SODIUM CHLOR 0.9% 1000 ML INJ 1,000 ML IV ONE (20:15)
[2018-02-20] MEDS ORDERED: ONDANSETRON HCL 4 MG/2 ML VIAL IV PUSH ONE (20:15)
--- NOTE | 2018-02-20 20:57 | MR ---
cc: Epi Flores MD, Arthur W MD DATE: 02/20/2018 PROCEDURE: Left heart catheterization, left ventriculography, coronary angiography, aortic root angiography, PCI with bare-metal stent x2 of the proximal mid left circumflex vessel and PCI with bare-metal stent x2 of the distal right coronary artery. INDICATIONS: Subacute myocardial infarction, STEMI, coronary artery disease, tobacco use, chronic renal insufficiency. Note, the patient was prehydrated with 1 liter of normal saline prior to procedure PROCEDURAL STATEMENT: The patient was brought to the cardiac catheterization laboratory, prepped and draped in the usual sterile fashion. 10 mL of 1% lidocaine was used to locally anesthetized the right common femoral artery. A 4-Stateless sheath placed in right common femoral artery, 4-Stateless JR4, JL5, 3DRC and angled pigtail catheter were used to perform left ventriculography, coronary angiography and aortic root angiography with the following findings: The LV pressure is 120/18/19. EF was approximately 40-45%. The inferior posterior wall was severely hypokinetic. The left main coronary has no significant disease angiographically. Note, I could not engage the ostium of the right coronary artery with an AL2 or JR4 catheter. Nonselective imaging did not reveal any ostium of the right coronary artery around the sign of tubular bridge on the right coronary cusp. Due to concern for the patient's renal insufficiency, I did not make further attempts at selective intubation of the right coronary artery. I then proceeded to image the left main with a JL5 catheter. Left mid coronary artery had no significant disease angiographically. The left circumflex vessel was a highly tortuous vessel with 110-degree angulation off the left main and then a secondary bend of 70 degrees in the opposite direction, followed by a 95% stenosis, and then about 25 mm later distally a complete occlusion. The LAD had a mid 90-95% stenosis just after the first diagonal artery. First diagonal artery is a medium-sized vessel, reference vessel diameter of 2.75 mm. No significant disease angiographically. The second diagonal artery is a medium size vessel, reference vessel diameter 2.75 mm to 3 mm with no significant disease angiographically. The LAD is transapical. Beyond the second diagonal artery, there is a 40-50% stenosis of about 10 mm in length. At this point in time, it was indeterminate whether the patient had a dominant circ with an occluded proximal lesion or a right coronary artery that was not imagable by selective intubation. I decided to proceed with PCI of the left circumflex vessel. We upsized to a 6-Stateless sheath. Initial ACT was 197. We gave an additional 2000 units of heparin. Second ACT was 237. Was given additional 2000 units of heparin. Third ACT was 250 and I gave an additional 2000 units, third bolus, with a final ACT of 360 at the end of the procedure. We used an XB 4.5 guide. I tried to place a 0.014 Prowater guidewire, but due to the extreme vessel tortuosity in the left circumflex vessel, I was not able to introduce the wire into the left circumflex due to persistent wire prolapse. I then was able to, with difficulty, advanced a 0.014 Choice PT guidewire to the occlusion site, but could not cross. I then used a 2.5 x 10 Euphora balloon and with balloon support was still not able to cross the mid left circ occlusion. There was, however, ASHELY 0-1 flow into what appeared to be a distal posterolateral artery with a long filling gap of probably 25 mm. After multiple attempts with balloon support, I was able to advance with a prolapsed tip the Choice PT into the distal posterolateral artery. This then resulted in reestablishment of flow into at least a medium to a large distal posterolateral artery with a reference vessel diameter probably 275 mm, very long length of at least probably 30 mm. I then did 4 inflations from the distal left circ back to the original occlusion site with a 2.5 x 10 balloon of up to 12 atmospheres up to 20 second . I then placed a 2-5 x 8 Integrity stent to the original occlusion site, 1 inflation at 12 atmospheres for 20 seconds and then placed a second 2.5 x 8 Integrity stent at the proximal 95% stenosis 1 inflation 14 atmospheres for 20 seconds. Stenoses ultimately went from 95% and 100% to 0 percent with ASHELY 3 flow. Note, there was a residual 60-70% stenosis in the proximal posterolateral artery. It was a very difficult decision, but decided not to attempt to place more stents due to the length of stent, the amount of organized thrombus and concern for use of contrast and also the fact that, at that point, we still had not ruled out the right coronary artery being occluded as the left circumflex vessel after reperfusion was definitely not a dominant circ. We then did an aortic root shot with a 4-Stateless pigtail catheter. The patient had a very unusually high takeoff with a superior posterior angulation of the right coronary artery. Would estimate that the takeoff of the right coronary artery was probably at least 15 mm above the sinotubular ridge. I was then able to selectively engage the right coronary artery with a 4-Stateless 3DRC catheter and this revealed a dominant right coronary artery. It was occluded in the distal segment. Note, prior to engaging the right coronary artery. I tried a multipurpose unsuccessfully. We then proceeded with a PCI of the right coronary artery, which was extremely difficult as I could not get the 6- Stateless 3DRC guide to approach the ostium as the guide took a much more lateral approach on the ascending aortic root and the ostium was much more medial. I actually used a 6-Stateless ANG guide catheter, which had a much more medial approach and was able to selectively engage the right coronary artery. I then advanced a 0.014 Prowater guidewire to the lesion site, but was not able to cross. I then used a 2.5 x 10 Euphora balloon for wire support, but again was not able to advance the wire. Finally, after multiple attempts and repositioning of the balloon, I was able to advance the wire safely into the distal right coronary artery out a small branch in between the right [place] and PDA. There was a heavy thrombus burden throughout the mid to distal right coronary artery, ostial proximal segment of the right R[place] and right PDA. I then did 5 inflations of up to 12 atmospheres in the distal right coronary and then 1 inflation of 10 atmospheres in the ostium of the right posterolateral artery. The right PDA was still subtotally occluded and had a 90-degree angulation off the distal right coronary artery and I was not able to wire it. I then placed a 2.5 x 22 Integrity stent with the proximal segment of the stent at the original occlusion site, deployed 1 inflation at 16 atmospheres for 20 seconds. Stenosis went from 100% to 0% with ASHELY 3 flow. There was still 75% residual stenosis with thrombus burden just at the right coronary bifurcation. I then placed a 2.5 x 8 Integrity stent with about 1 mm of overlap of the 22 mm stent, deployed 1 inflation at 12 atmospheres for 20 seconds. I then postdilated the overlap segment with a 2.5 x 8 Integrity stent balloon 1 inflation at 16 atmospheres for 20 seconds. There was still visible thrombus at the distal right coronary artery right at the bifurcation; however, flow improved to ASHELY 3 and there appeared to be no stenoses in the right PDA or R[place] which then with adequate perfusion appeared to be at least 2.5 to 2.75 mm vessels respectively. At that point in time, the patient also developed some transient bradycardia and hypotension with ASHELY 2 to 3 flow, which responded very well to 200 mcg of intracoronary Nipride. Also that point in time, we had used 420 mL of contrast. I had also given the patient a second liter of normal saline. I decided at that time that risks/benefit ratio did not favor further attempts to PCI the area of thrombus burden. The ACT was 368. We gave him 60 of Effient and started on Aggrastat drip. CONCLUSION: 1. Subacute myocardial infarction with persistent resting angina, indeterminate culprit lesion with an occluded proximal left circumflex vessel and an occluded distal right coronary artery and a 90-95% mid left anterior descending and a transapical left anterior descending. 2. Mild to moderate left ventricular systolic dysfunction, ejection fraction 40-45% with severe hypokinesis of the posterior wall and mid inferior wall. 4. Successful PCI with bare-metal stent x2 of the left circumflex vessel from 100% to 0% with ASHELY 3 flow. 5. Successful PCI bare-metal stent x2 of the distal right coronary from 100% to 0% with ASHELY 3 flow. 6. At least mildly enlarged aortic root. 7. Anatomic variant of the right coronary artery with a high takeoff, approximately 10-15 mm above the right sinotubular ridge with a very superior posterior angulation off the aortic root. 8. Extremely difficult case involving a variant right coronary artery anatomy, heavy thrombus burden in 2 separate vessels with indeterminate culprit lesion for the patient's myocardial infarction as well as 90-95% mid left anterior descending lesion with a transapical left anterior descending with chronic renal insufficiency and obviously a very large amount of jeopardized myocardium. 9. I did think that the risk/benefit ratio did favor multivessel PCI given the 2 occluded vessels, despite the fact that the patient's chest pain began the night previously as he was still having chest pain and again, there was a large amount of jeopardized myocardium due to the anatomy detailed above. 10. Note, the patient received 1 liter of normal saline preprocedure and also another liter of saline mateo-procedure. 11. Recommend Effient 60 mg load then 10 mg daily for a total of 15 months, aspirin 162 mg daily indefinitely. Aggrastat drip per protocol. 12. Obviously, we will need to follow the patient's creatinine closely and monitor his clinical response to determine risk/benefit ratio of PCI of the left anterior descending. His condition is guarded due to his multiple comorbidities and very high risk presentation with heavy thrombus burden and 2 separate vascular distributions with a residual 90-95% mid left anterior descending lesion. Again, he is very high risk for poor outcome, high risk for mortality and morbidity certainly in the short-term setting. MD GINNA Koenig/ , 07:41 PM , 08:56 PM
[2018-02-20] MEDS: SODIUM CHLORIDE 0.9% FLUSH 10 ML FLUSH IV FLUSH SCH (21:00)
[2018-02-20] MEDS ORDERED: TIROFIBAN INFUSION INJ 250 ML IV SCH (21:00)
[2018-02-21] VITALS (24 sets, daily range): BP systolic 88–117; BP diastolic 42–58; PULSE 60–84; RESP 18–20; TEMP 97.8–98.8; O2SAT 96–99
--- NOTE | 2018-02-21 00:23 | PD.CARD.PN ---
Subjective Subjective Remarks asleep in nad Objective Medications Current Medications Medications (Trade) Dose Ordered Sig/Darwin Route Start Time Stop Time Status Last Admin Nitroglycerin/ Dextrose 250 ml @ 1.5 mls/hr TITRATE PRN IV 02/20/18 16:30 02/20/18 16:54 Heparin Sodium/ Dextrose 250 ml @ 10 mls/hr TITRATE PRN IV 02/20/18 16:30 (NS Flush) 2 ml UNSCH PRN IV FLUSH 02/20/18 19:45 (NS Flush) 2 ml BID IV FLUSH 02/20/18 21:00 02/20/18 21:00 (Aspirin Chew) 162 mg DAILY PO 02/21/18 09:00 (Effient) 10 mg DAILY PO 02/21/18 09:00 Tirofiban/Sodium Chloride 250 ml @ 14.4 mls/hr [id number] IV 02/20/18 21:00 02/21/18 12:32 02/20/18 18:28 Vital Signs / I&O Vital Signs Date Time Temp Pulse Resp B/P (MAP) Pulse Ox O2 Delivery O2 Flow Rate FiO2 02/20/18 20:07 98 Nasal Cannula 2.00 02/20/18 16:56 02/20/18 16:54 56 148/86 02/20/18 16:25 60 18 148/76 (100) 98 Room Air 02/20/18 16:23 97 21 02/20/18 15:03 98 Room Air 02/20/18 15:03 98 Room Air 02/20/18 14:57 68 96 02/20/18 14:57 64 18 124/62 (82) 98 Room Air 02/20/18 14:50 62 18 124/62 (82) 96 I/O 02/20/18 02/20/18 02/20/18 02/21/18 02/21/18 02/21/18 06:59 14:59 22:59 06:59 14:59 22:59 Intake Total 2046 ml Balance 2046 ml Intake IV Total 2046 ml Physical Exam GENERAL: SKIN: Warm and dry. HEAD: Normocephalic. EYES: No scleral icterus. No injection or drainage. NECK: Supple, trachea midline. No JVD or lymphadenopathy. CARDIOVASCULAR: Regular rate and rhythm without murmurs, gallops, or rubs. RESPIRATORY: Breath sounds equal bilaterally. No accessory muscle use. GASTROINTESTINAL: Abdomen soft, non-tender, nondistended. MUSCULOSKELETAL: No cyanosis, or edema. BACK: Nontender without obvious deformity. No CVA tenderness. Laboratory Laboratory Tests Test 02/20/18 15:02 02/20/18 23:14 White Blood Count 13.1 TH/MM3 Red Blood Count 4.57 MIL/MM3 Hemoglobin 13.7 GM/DL Hematocrit 40.3 % Mean Corpuscular Volume 88.3 FL Mean Corpuscular Hemoglobin 30.1 PG Mean Corpuscular Hemoglobin Concent 34.0 % Red Cell Distribution Width 13.6 % Platelet Count 205 TH/MM3 Mean Platelet Volume 9.0 FL Neutrophils (%) (Auto) 73.7 % Lymphocytes (%) (Auto) 20.3 % Monocytes (%) (Auto) 5.7 % Eosinophils (%) (Auto) 0.2 % Basophils (%) (Auto) 0.1 % Neutrophils # (Auto) 9.7 TH/MM3 Lymphocytes # (Auto) 2.7 TH/MM3 Monocytes # (Auto) 0.8 TH/MM3 Eosinophils # (Auto) 0.0 TH/MM3 Basophils # (Auto) 0.0 TH/MM3 CBC Comment DIFF FINAL Differential Comment Prothrombin Time 10.4 SEC Prothromb Time International Ratio 1.0 RATIO Activated Partial Thromboplast Time 27.9 SEC 29.2 SEC Blood Urea Nitrogen 21 MG/DL Creatinine 1.59 MG/DL Random Glucose 147 MG/DL Total Protein 7.0 GM/DL Albumin 3.4 GM/DL Calcium Level 7.9 MG/DL Magnesium Level 2.2 MG/DL Alkaline Phosphatase 77 U/L Aspartate Amino Transf (AST/SGOT) 348 U/L Alanine Aminotransferase (ALT/SGPT) 55 U/L Total Bilirubin 0.5 MG/DL Sodium Level 138 MEQ/L Potassium Level 4.1 MEQ/L Chloride Level 104 MEQ/L Carbon Dioxide Level 24.8 MEQ/L Anion Gap 9 MEQ/L Estimat Glomerular Filtration Rate 43 ML/MIN Total Creatine Kinase 2178 U/L Creatine Kinase MB 368.6 NG/ML Creatine Kinase MB % 16.9 % Troponin I GREATER THAN 40.00 NG/ML Lipase 171 U/L Imaging Last 24 hours Impressions Chest X-Ray 02/20/18 2448 Signed Impressions: CONCLUSION: The lungs are clear. Assessment and Plan Problem List: (1) NSTEMI (non-ST elevated myocardial infarction) ICD Codes: I21.4 - Non-ST elevation (NSTEMI) myocardial infarction Status: Acute (2) CAD (coronary artery disease) ICD Codes: I25.10 - Atherosclerotic heart disease of [place] coronary artery without angina pectoris (3) Tobacco abuse ICD Codes: Z72.0 - Tobacco use (4) Cardiomyopathy ICD Codes: I42.9 - Cardiomyopathy, unspecified (5) CRI (chronic renal insufficiency) ICD Codes: N18.9 - Chronic kidney disease, unspecified Assessment and Plan 1.) CAD - pod # bms x 2 lcx and bms x 2 rca, 90% mid lad, ef=45%, cri, continue aspirin, effient, f/u creatinine Epi Flores MD Feb 21, 2018 00:23
[2018-02-21 06:06] LABS: AUTOMATED NEUTROPHIL # 6.9 TH/MM3 (1.8-7.7); BASOPHIL % 0.1 % (0.0-2.0); EOSINOPHIL % 0.2 % (0.0-4.0); HEMATOCRIT 34.6 % (39.0-51.0); HEMOGLOBIN 11.9 GM/DL (13.0-17.0); LYMPH % 21.2 % (9.0-44.0); MEAN CELL VOLUME 87.9 FL (80.0-100.0); MEAN CORPUSCULAR HEMOGLOBIN 30.1 PG (27.0-34.0); MEAN CORPUSCULAR HGB CONC 34.2 % (32.0-36.0); MEAN PLATELET VOLUME 9.5 FL (7.0-11.0); MONO % 7.2 % (0.0-8.0); MONOCYTE # 0.7 TH/MM3 (0-0.9); NEUT % 71.3 % (16.0-70.0); PLATELET COUNT 164 TH/MM3 (150-450); RED BLOOD COUNT 3.94 MIL/MM3 (4.50-5.90); RED CELL DISTRIBUTION WIDTH 13.8 % (11.6-17.2); WHITE BLOOD COUNT 9.7 TH/MM3 (4.0-11.0)
[2018-02-21 06:33] LABS: BICARBONATE 21.7 MEQ/L (21.0-32.0); CALCIUM 6.6 MG/DL (8.5-10.1); CREATININE 1.47 MG/DL (0.60-1.30)
[2018-02-21 06:50] LABS: CHOLESTEROL/ HDL RATIO 4.34 RATIO; HDL CHOLESTEROL 23.5 MG/DL (40.0-60.0); TOTAL PROTEIN 5.6 GM/DL (6.4-8.2)
[2018-02-21 07:30] LABS: CALCIUM-PROTEIN CORRECTED 7.3 MG/DL (8.5-10.1)
[2018-02-21] MEDS ORDERED: CALCIUM GLUCONATE INJ 1 GM in SODIUM CHLORIDE 0.9% INJ 100 ML IV ONE (09:00)
[2018-02-21] MEDS: ASPIRIN 81 MG CHEW TAB PO SCH (09:27)
[2018-02-21] MEDS: PRASUGREL 10 MG TAB PO SCH (09:27)
[2018-02-21] MEDS: SODIUM CHLORIDE 0.9% FLUSH 10 ML FLUSH IV FLUSH SCH ×2 (09:27→21:00)
--- NOTE | 2018-02-21 11:45 | PD.CONS ---
[facility] By [facility] Reason for Consult Medical management Primary Care Physician Diagnoses: History of Present Illness 72-year-old man with a past medical history of hypertension, coronary renal disease who presented yesterday to the ED for evaluation of substernal chest pain described as stabbing compared to an elephant sitting on my chest with radiations to right upper extremity and associated with diaphoresis, which started its at 9 PM while patient was eating some yogurt. Patient states it initially felt as heartburn, however continues event after patient arrived in the ED. Cardiology was called for STEMI alert and patient underwent left heart catheterization with PCI. During my exam, he denies any chest pain or shortness of breath. Review of Systems Except as stated in HPI: all other systems reviewed are Neg Past Family Social History Allergies: Coded Allergies: Penicillins (Verified Allergy, Intermediate, Swelling, 02/20/18) Past Medical History Hypertension Chronic kidney disease Prior history of tobacco abuse Past Surgical History Left leg surgery Reported Medications See EMR Family History Family history positive for unknown type of cancer Social History Patient quit tobacco 10 years ago, denies illicit drug intake. Physical Exam Vital Signs Vital Signs Date Time Temp Pulse Resp B/P (MAP) Pulse Ox O2 Delivery O2 Flow Rate FiO2 02/21/18 10:00 64 02/21/18 09:00 70 02/21/18 08:00 84 02/21/18 07:15 67 02/21/18 06:00 70 02/21/18 05:00 66 02/21/18 04:00 98.0 68 20 88/52 (64) 99 Arterial Line 02/21/18 04:00 66 02/21/18 03:00 66 02/21/18 02:00 66 02/21/18 01:00 64 02/21/18 00:00 97.8 62 20 92/50 (64) 99 91/42 (58) 02/21/18 00:00 60 02/20/18 23:00 64 02/20/18 22:00 70 02/20/18 21:25 58 02/20/18 20:30 59 20 112/58 (76) 94 122/54 (76) 02/20/18 20:15 98.0 63 18 113/61 (78) 92 122/54 (76) 02/20/18 20:07 98 Nasal Cannula 2.00 02/20/18 16:56 02/20/18 16:54 56 148/86 02/20/18 16:25 60 18 148/76 (100) 98 Room Air 02/20/18 16:23 97 21 02/20/18 15:03 98 Room Air 02/20/18 15:03 98 Room Air 02/20/18 14:57 68 96 02/20/18 14:57 64 18 124/62 (82) 98 Room Air 02/20/18 14:50 62 18 124/62 (82) 96 Physical Exam GENERAL: This is a well-nourished, well-developed patient, in no apparent distress. SKIN: No rashes, ecchymoses or lesions. Cool and dry. HEAD: Atraumatic. Normocephalic. No temporal or scalp tenderness. EYES: Pupils equal round and reactive. Extraocular motions intact. No scleral icterus. No injection or drainage. ENT: Nose without bleeding, purulent drainage or septal hematoma. Throat without erythema, tonsillar hypertrophy or exudate. Uvula midline. Airway patent. NECK: Trachea midline. No JVD or lymphadenopathy. Supple, nontender, no meningeal signs. CARDIOVASCULAR: Regular rate and rhythm without murmurs, gallops, or rubs. RESPIRATORY: Clear to auscultation. Breath sounds equal bilaterally. No wheezes , rales, or rhonchi. GASTROINTESTINAL: Abdomen soft, non-tender, nondistended. No hepato-splenomegaly , or palpable masses. No guarding. MUSCULOSKELETAL: Extremities without clubbing, cyanosis, or edema. No joint tenderness, effusion, or edema noted. No calf tenderness. Negative Homans sign bilaterally. NEUROLOGICAL: Awake and alert. Cranial nerves II through XII intact. Motor and sensory grossly within normal limits. Five out of 5 muscle strength in all muscle groups. Normal speech. Laboratory Laboratory Tests Test 02/20/18 15:02 02/20/18 23:14 02/21/18 04:53 White Blood Count 13.1 9.7 Red Blood Count 4.57 3.94 Hemoglobin 13.7 11.9 Hematocrit 40.3 34.6 Mean Corpuscular Volume 88.3 87.9 Mean Corpuscular Hemoglobin 30.1 30.1 Mean Corpuscular Hemoglobin Concent 34.0 34.2 Red Cell Distribution Width 13.6 13.8 Platelet Count 205 164 Mean Platelet Volume 9.0 9.5 Neutrophils (%) (Auto) 73.7 71.3 Lymphocytes (%) (Auto) 20.3 21.2 Monocytes (%) (Auto) 5.7 7.2 Eosinophils (%) (Auto) 0.2 0.2 Basophils (%) (Auto) 0.1 0.1 Neutrophils # (Auto) 9.7 6.9 Lymphocytes # (Auto) 2.7 2.0 Monocytes # (Auto) 0.8 0.7 Eosinophils # (Auto) 0.0 0.0 Basophils # (Auto) 0.0 0.0 CBC Comment DIFF FINAL DIFF FINAL Differential Comment Prothrombin Time 10.4 Prothromb Time International Ratio 1.0 Activated Partial Thromboplast Time 27.9 29.2 Blood Urea Nitrogen 21 19 Creatinine 1.59 1.47 Random Glucose 147 117 Total Protein 7.0 5.6 Albumin 3.4 Calcium Level 7.9 6.6 Magnesium Level 2.2 Alkaline Phosphatase 77 Aspartate Amino Transf (AST/SGOT) 348 Alanine Aminotransferase (ALT/SGPT) 55 Total Bilirubin 0.5 Sodium Level 138 140 Potassium Level 4.1 4.1 Chloride Level 104 109 Carbon Dioxide Level 24.8 21.7 Anion Gap 9 9 Estimat Glomerular Filtration Rate 43 47 Total Creatine Kinase 2178 1926 Creatine Kinase MB 368.6 236.4 Creatine Kinase MB % 16.9 12.3 Troponin I GREATER THAN 40.00 Lipase 171 Protein Corrected Calcium 7.3 Triglycerides Level 149 Cholesterol Level 102 LDL Cholesterol 49 HDL Cholesterol 23.5 Cholesterol/HDL Ratio 4.34 Result Diagram: 02/21/18 0453 02/21/18 0453 Imaging Last Impressions Chest X-Ray 02/20/18 7154 Signed Impressions: CONCLUSION: The lungs are clear. Assessment and Plan Assessment and Plan 72-year-old man with Non-ST elevation CT Status post left heart catheterization with PCI Continue aspirin, Effient Secondary To elevated AST, statin is contraindicated Management per cardiology Chronic kidney disease stage II-III Chronic, continue to monitor creatinine Hypocalcemia Give calcium gluconate 1 g IV 1 and monitor Code Status Full code Discussed Condition With Patient Gurjit Sam MD Feb 21, 2018 11:45
[2018-02-21] MEDS ORDERED: CALC0.25 PO (14:33)
[2018-02-21] MEDS ORDERED: VALS1TAB63 PO (14:33)
--- NOTE | 2018-02-21 15:11 | EKG ---
Date Performed: 02/20/2018 Time Performed: 13:56:00 PTAGE: 72 years EKG: SINUS BRADYCARDIA INFERIOR MYOCARDIAL INFARCTION ABNORMAL ECG NO PREVIOUS TRACING DOCTOR: Massimo Auguste Interpretating Date/Time 02/21/2018 15:10:02
[2018-02-22] VITALS (24 sets, daily range): BP systolic 100–122; BP diastolic 56–70; PULSE 60–89; RESP 16–20; TEMP 98–98.9; O2SAT 94–99
[2018-02-22 06:55] LABS: AUTOMATED NEUTROPHIL # 6.4 TH/MM3 (1.8-7.7); BASOPHIL % 0.1 % (0.0-2.0); EOSINOPHIL # 0.1 TH/MM3 (0-0.4); EOSINOPHIL % 1.3 % (0.0-4.0); HEMOGLOBIN 11.9 GM/DL (13.0-17.0); LYMPH % 18.7 % (9.0-44.0); LYMPHOCYTE # 1.7 TH/MM3 (1.0-4.8); MEAN CELL VOLUME 88.4 FL (80.0-100.0); MEAN CORPUSCULAR HEMOGLOBIN 30.1 PG (27.0-34.0); MEAN CORPUSCULAR HGB CONC 34.1 % (32.0-36.0); MEAN PLATELET VOLUME 8.9 FL (7.0-11.0); MONO % 7.6 % (0.0-8.0); MONOCYTE # 0.7 TH/MM3 (0-0.9); NEUT % 72.3 % (16.0-70.0); PLATELET COUNT 131 TH/MM3 (150-450); RED BLOOD COUNT 3.96 MIL/MM3 (4.50-5.90); RED CELL DISTRIBUTION WIDTH 13.8 % (11.6-17.2); WHITE BLOOD COUNT 8.9 TH/MM3 (4.0-11.0)
[2018-02-22 07:37] LABS: ALBUMIN 2.8 GM/DL (3.4-5.0); BICARBONATE 22.1 MEQ/L (21.0-32.0); CALCIUM 7.4 MG/DL (8.5-10.1); CALCIUM-PROTEIN CORRECTED 8.1 MG/DL (8.5-10.1); CREATININE 1.95 MG/DL (0.60-1.30); TOTAL BILIRUBIN ADULT 0.6 MG/DL (0.2-1.0); TOTAL PROTEIN 5.9 GM/DL (6.4-8.2)
[2018-02-22] MEDS ORDERED: PRAS10TA PO (08:33)
[2018-02-22] MEDS ORDERED: ASPI81 PO (08:33)
[2018-02-22] MEDS ORDERED: SENNOSIDES 8.6 MG TAB PO PRN (08:45)
[2018-02-22] MEDS ORDERED: MAGNESIUM HYDROXIDE SUSP 30 ML CUP PO PRN (08:45)
[2018-02-22] MEDS ORDERED: CALCIUM GLUCONATE INJ 1 GM in SODIUM CHLORIDE 0.9% INJ 100 ML IV ONE (08:45)
[2018-02-22] MEDS ORDERED: BISACODYL 10 MG SUPP RECTAL PRN (08:45)
[2018-02-22] MEDS ORDERED: NALOXONE HCL 0.4 MG/ML AMP IV PUSH PRN (08:45)
[2018-02-22] MEDS ORDERED: LACTULOSE SYRUP 20 GM/30 ML CUP PO PRN (08:45)
--- NOTE | 2018-02-22 09:26 | HHI.PR ---
Subjective Remarks He is seen here since not have much pressure overnight. He is ambulating without problems. Urinating sounds no fever or chills. No cough. Feels tired. No diaphoresis, nausea, palpitations. Objective Vitals Vital Signs Date Time Temp Pulse Resp B/P (MAP) Pulse Ox O2 Delivery O2 Flow Rate FiO2 02/22/18 08:00 68 02/22/18 08:00 98.2 74 20 112/70 (84) 94 02/22/18 06:00 73 02/22/18 05:00 63 02/22/18 04:03 63 02/22/18 04:00 98.2 68 16 122/60 (80) 97 02/22/18 03:00 60 02/22/18 02:00 74 02/22/18 01:00 74 02/22/18 00:00 98.8 73 17 104/59 (74) 96 02/22/18 00:00 73 02/21/18 23:00 74 02/21/18 22:00 75 02/21/18 21:00 72 02/21/18 20:00 98.8 72 20 98/55 (69) 96 02/21/18 20:00 70 02/21/18 19:00 74 02/21/18 18:00 77 02/21/18 17:00 77 02/21/18 16:00 64 02/21/18 15:00 98.2 74 19 99/57 (71) 99 02/21/18 15:00 69 02/21/18 14:00 67 02/21/18 13:00 73 02/21/18 12:00 79 02/21/18 11:00 70 02/21/18 11:00 98.1 73 18 117/58 (77) 98 02/21/18 10:00 64 I/O 02/21/18 02/21/18 02/21/18 02/22/18 02/22/18 02/22/18 07:00 15:00 23:00 07:00 15:00 23:00 Intake Total 80 ml 190 ml 240 ml Balance 80 ml 190 ml 240 ml Intake Oral 240 ml IV Total 80 ml 190 ml # Voids 3 2 Result Diagram: 02/22/18 0627 02/22/18 06 Imaging Last Impressions Chest X-Ray 02/20/18 6493 Signed Impressions: CONCLUSION: The lungs are clear. Objective Remarks GENERAL: This is a well-nourished, well-developed patient, in no apparent distress. CARDIOVASCULAR: Regular rate and rhythm without murmurs, gallops, or rubs. RESPIRATORY: Clear to auscultation. Breath sounds equal bilaterally. No wheezes , rales, or rhonchi. GASTROINTESTINAL: Abdomen soft, non-tender, nondistended. No hepato-splenomegaly , or palpable masses. No guarding. MUSCULOSKELETAL: Extremities without clubbing, cyanosis, or edema. No joint tenderness, effusion, or edema noted. No calf tenderness. Negative Homans sign bilaterally. NEUROLOGICAL: Awake and alert. Cranial nerves II through XII intact. Motor and sensory grossly within normal limits. Five out of 5 muscle strength in all muscle groups. Normal speech. A/P Assessment and Plan 72-year-old man with Non-ST elevation [place] Status post left heart catheterization with PCI Continue aspirin, Effient Add carvedilol Secondary To elevated AST, statin is contraindicated Management per cardiology Chronic kidney disease stage II-III. Chronic, continue to monitor creatinine. Unknown Cr baseline. Check UA, do kidney US Consult nephro Hypocalcemia Give calcium gluconate 1 g IV 1 and monitor Code Status Full code Discussed Condition With Patient, nurse DC plan when cleared by cardio and nephro Akilah Juan MD Feb 22, 2018 09:26
[2018-02-22] MEDS ORDERED: CARV3.12 PO (09:28)
[2018-02-22] MEDS: CARVEDILOL 3.125 MG TAB PO SCH ×2 (09:30→23:06)
[2018-02-22] MEDS: ASPIRIN 81 MG CHEW TAB PO SCH (09:38)
[2018-02-22] MEDS: DOCUSATE SODIUM 50 MG/SENNA 8.6 MG TAB PO SCH ×2 (09:38→23:21)
[2018-02-22] MEDS: SODIUM CHLORIDE 0.9% FLUSH 10 ML FLUSH IV FLUSH SCH ×2 (09:39→21:00)
[2018-02-22] MEDS: PRASUGREL 10 MG TAB PO SCH (09:39)
--- NOTE | 2018-02-22 10:11 | RADRPT ---
EXAM DATE: 02/22/2018 9:55 AM EDT AGE/SEX: 72 years / Male INDICATIONS: Increased Bun and Creatinine. CLINICAL DATA: This is the patient's initial encounter. Patient reports that signs and symptoms have been present for 1 day and indicates a pain score of 0/10. MEDICAL/SURGICAL HISTORY: Hypertension. Kidney disease. . Left leg surgery. COMPARISON: No prior exams available for comparison. MEASUREMENTS: Right Kidney:__10.6 x 5.6 x 5.7 cm Left Kidney:__10.4 x 5.1 x 4.3 cm FINDINGS: Right Kidney: 1.2 cm cyst lower pole 0.8 cm and 0.9 cm echogenic mass is that could be stone. There is no hydronephrosis. Left Kidney: Unremarkable left kidney. Bladder: Within normal limits given the degree of distension. CONCLUSION: 1. 1.2 cm lower pole cyst on the right 2. Probable 8 and 9 mm stone on the right respectively. Noncontrast CT scan may be of benefit to con firm. Electronically signed by: Alexx Bowling MD 02/22/2018 10:10 AM EDT
[2018-02-22] MEDS ORDERED: IOHEXOL 350 MG/ML 100 ML BTL (for Cath Lab) OTHER ONE (10:28)
[2018-02-22] MEDS ORDERED: IOHEXOL 350 MG/ML 50 ML BTL (for Cath Lab) OTHER ONE (10:28)
--- NOTE | 2018-02-22 10:59 | PD.CONS ---
HPI Service Nephrology Consult Requested By Reason for Consult RYAN on CKD Primary Care Physician No Primary Care Physician History of Present Illness This is a very pleasant 72 y/o [place] visiting. He was admitted for chest pain, had cardiac cath on 02/20 with 4 stents placed. He has a hx of HTN and CKD, sees a armament mechanic at home. Reports CKD 3 , unable to give baseline creatinine or GFR. On admission his creatinine was 1.5 , improved slightly and is 1.95 today. He is making urine. WE were consulted to assist. (Chaya Pizarro) Review of Systems Respiratory: DENIES: Shortness of breath Cardiovascular: COMPLAINS OF: Chest pain, DENIES: Palpitations, Dyspnea on Exertion (Chaya Pizarro) Past Family Social History Allergies: Coded Allergies: Penicillins (Verified Allergy, Intermediate, Swelling, 02/20/18) Past Medical History CKD 3 HTN Past Surgical History None Reported Medications unable to list Active Ordered Medications Last 72 hours Impressions Renal Ultrasound 02/22/18 0000 Signed Impressions: CONCLUSION: 1. 1.2 cm lower pole cyst on the right 2. Probable 8 and 9 mm stone on the right respectively. Noncontrast CT scan ma y be of benefit to confirm. Chest X-Ray 02/20/18 1459 Signed Impressions: CONCLUSION: The lungs are clear. Family History Mother at 72 y/o , "sclerotic renal failure", not on HD Social History Single Lives in [place] former smoker retired (Chaya Pizarro) Physical Exam Vital Signs Vital Signs Date Time Temp Pulse Resp B/P (MAP) Pulse Ox O2 Delivery O2 Flow Rate FiO2 02/22/18 10:00 68 02/22/18 09:00 74 02/22/18 08:00 68 02/22/18 08:00 98.2 74 20 112/70 (84) 94 02/22/18 06:00 73 02/22/18 05:00 63 02/22/18 04:03 63 02/22/18 04:00 98.2 68 16 122/60 (80) 97 02/22/18 03:00 60 02/22/18 02:00 74 02/22/18 01:00 74 02/22/18 00:00 98.8 73 17 104/59 (74) 96 02/22/18 00:00 73 02/21/18 23:00 74 02/21/18 22:00 75 02/21/18 21:00 72 02/21/18 20:00 98.8 72 20 98/55 (69) 96 02/21/18 20:00 70 02/21/18 19:00 74 02/21/18 18:00 77 02/21/18 17:00 77 02/21/18 16:00 64 02/21/18 15:00 98.2 74 19 99/57 (71) 99 02/21/18 15:00 69 02/21/18 14:00 67 02/21/18 13:00 73 02/21/18 12:00 79 02/21/18 11:00 70 02/21/18 11:00 98.1 73 18 117/58 (77) 98 Physical Exam Elderly male Awake, alert, not in distress S1/S2 Lungs clear Abd round, soft non tender trace edema, distal pulses strong Laboratory Laboratory Tests Test 02/22/18 06:27 White Blood Count 8.9 Red Blood Count 3.96 Hemoglobin 11.9 Hematocrit 35.0 Mean Corpuscular Volume 88.4 Mean Corpuscular Hemoglobin 30.1 Mean Corpuscular Hemoglobin Concent 34.1 Red Cell Distribution Width 13.8 Platelet Count 131 Mean Platelet Volume 8.9 Neutrophils (%) (Auto) 72.3 Lymphocytes (%) (Auto) 18.7 Monocytes (%) (Auto) 7.6 Eosinophils (%) (Auto) 1.3 Basophils (%) (Auto) 0.1 Neutrophils # (Auto) 6.4 Lymphocytes # (Auto) 1.7 Monocytes # (Auto) 0.7 Eosinophils # (Auto) 0.1 Basophils # (Auto) 0.0 CBC Comment DIFF FINAL Differential Comment Blood Urea Nitrogen 28 Creatinine 1.95 Random Glucose 120 Total Protein 5.9 Albumin 2.8 Calcium Level 7.4 Alkaline Phosphatase 78 Aspartate Amino Transf (AST/SGOT) 195 Alanine Aminotransferase (ALT/SGPT) 87 Total Bilirubin 0.6 Sodium Level 140 Potassium Level 4.0 Chloride Level 108 Carbon Dioxide Level 22.1 Anion Gap 10 Estimat Glomerular Filtration Rate 34 Protein Corrected Calcium 8.1 (Chaya Pizarro) Result Diagram: 02/22/1862602/22/18626 Imaging Last 72 hours Impressions Renal Ultrasound 02/22/18 0000 Signed Impressions: CONCLUSION: 1. 1.2 cm lower pole cyst on the right 2. Probable 8 and 9 mm stone on the right respectively. Noncontrast CT scan ma y be of benefit to confirm. Chest X-Ray 02/20/18 1459 Signed Impressions: CONCLUSION: The lungs are clear. (Chaya Pizarro) Assessment and Plan Problem List: (1) RYAN (acute kidney injury) ICD Codes: N17.9 - Acute kidney failure, unspecified Plan: RYAN on CKD 3 RYAN most likely contrast induced nephropathy Creatinine is slightly worse today US shows rather large renal caliculi UA pending Repeat labs in AM He was given IVF pre procedure, tolerating oral now Avoid nephrotoxic agents He is non oliguric Expect improvement (2) NSTEMI (non-ST elevated myocardial infarction) ICD Codes: I21.4 - Non-ST elevation (NSTEMI) myocardial infarction Status: Acute Plan: s/p 4 stents placed cardiology following (Chaya Pizarro) Assessment and Plan patient was seen and examined. Agree with above assessment and plan. (Talib Rosales MD) Chaya Pizarro Feb 22, 2018 10:59 Talib Rosales MD Feb 22, 2018 11:38
[2018-02-22 12:13] LABS: BILIRUBIN, URINE NEG (NEG); BLOOD, URINE NEG (NEG); GLUCOSE,URINE NEG (NEG); KETONE, URINE NEG (NEG); MUCUS URINE FEW /lpf (OCC); NITRITE,URINE NEG (NEG); PH, URINE 5.5 (5.0-8.5); URINE COLOR YELLOW (YELLW/STRAW); URINE LEUKOCYTE ESTERASE NEG (NEG)
--- NOTE | 2018-02-22 13:17 | PD.CARD.PN ---
Subjective Subjective Remarks assymptomatic in nad Objective Medications Current Medications Medications (Trade) Dose Ordered Sig/Darwin Route Start Time Stop Time Status Last Admin Nitroglycerin/ Dextrose 250 ml @ 1.5 mls/hr TITRATE PRN IV 02/20/18 16:30 02/20/18 16:54 Heparin Sodium/ Dextrose 250 ml @ 10 mls/hr TITRATE PRN IV 02/20/18 16:30 (NS Flush) 2 ml UNSCH PRN IV FLUSH 02/20/18 19:45 (NS Flush) 2 ml BID IV FLUSH 02/20/18 21:00 02/22/18 09:39 (Aspirin Chew) 162 mg DAILY PO 02/21/18 09:00 02/22/18 09:38 (Effient) 10 mg DAILY PO 02/21/18 09:00 02/22/18 09:39 (Narcan Inj) 0.4 mg UNSCH PRN IV PUSH 02/22/18 08:45 (Santa-Colace) 1 tab BID PO 02/22/18 09:00 02/22/18 09:38 (Milk Of Magnesia Liq) 30 ml Q12H PRN PO 02/22/18 08:45 (Senokot) 17.2 mg Q12H PRN PO 02/22/18 08:45 (Dulcolax Supp) 10 mg DAILY PRN RECTAL 02/22/18 08:45 (Lactulose Liq) 30 ml DAILY PRN PO 02/22/18 08:45 (Coreg) 3.125 mg Q12HR PO 02/22/18 09:30 02/22/18 09:30 Vital Signs / I&O Vital Signs Date Time Temp Pulse Resp B/P (MAP) Pulse Ox O2 Delivery O2 Flow Rate FiO2 02/22/18 12:00 77 02/22/18 11:00 98.8 70 20 101/56 (71) 99 02/22/18 11:00 69 02/22/18 10:00 68 02/22/18 09:00 74 02/22/18 08:00 68 02/22/18 08:00 98.2 74 20 112/70 (84) 94 02/22/18 06:00 73 02/22/18 05:00 63 02/22/18 04:03 63 02/22/18 04:00 98.2 68 16 122/60 (80) 97 02/22/18 03:00 60 02/22/18 02:00 74 02/22/18 01:00 74 02/22/18 00:00 98.8 73 17 104/59 (74) 96 02/22/18 00:00 73 02/21/18 23:00 74 02/21/18 22:00 75 02/21/18 21:00 72 02/21/18 20:00 98.8 72 20 98/55 (69) 96 02/21/18 20:00 70 02/21/18 19:00 74 02/21/18 18:00 77 02/21/18 17:00 77 02/21/18 16:00 64 02/21/18 15:00 98.2 74 19 99/57 (71) 99 02/21/18 15:00 69 02/21/18 14:00 67 I/O 02/21/18 02/21/18 02/21/18 02/22/18 02/22/18 02/22/18 07:00 15:00 23:00 07:00 15:00 23:00 Intake Total 80 ml 190 ml 240 ml Balance 80 ml 190 ml 240 ml Intake Oral 240 ml IV Total 80 ml 190 ml # Voids 3 2 Physical Exam GENERAL: SKIN: Warm and dry. HEAD: Normocephalic. EYES: No scleral icterus. No injection or drainage. NECK: Supple, trachea midline. No JVD or lymphadenopathy. CARDIOVASCULAR: Regular rate and rhythm without murmurs, gallops, or rubs. RESPIRATORY: Breath sounds equal bilaterally. No accessory muscle use. GASTROINTESTINAL: Abdomen soft, non-tender, nondistended. MUSCULOSKELETAL: No cyanosis, or edema. BACK: Nontender without obvious deformity. No CVA tenderness. Laboratory Laboratory Tests Test 02/22/18 06:27 02/22/18 11:35 White Blood Count 8.9 TH/MM3 Red Blood Count 3.96 MIL/MM3 Hemoglobin 11.9 GM/DL Hematocrit 35.0 % Mean Corpuscular Volume 88.4 FL Mean Corpuscular Hemoglobin 30.1 PG Mean Corpuscular Hemoglobin Concent 34.1 % Red Cell Distribution Width 13.8 % Platelet Count 131 TH/MM3 Mean Platelet Volume 8.9 FL Neutrophils (%) (Auto) 72.3 % Lymphocytes (%) (Auto) 18.7 % Monocytes (%) (Auto) 7.6 % Eosinophils (%) (Auto) 1.3 % Basophils (%) (Auto) 0.1 % Neutrophils # (Auto) 6.4 TH/MM3 Lymphocytes # (Auto) 1.7 TH/MM3 Monocytes # (Auto) 0.7 TH/MM3 Eosinophils # (Auto) 0.1 TH/MM3 Basophils # (Auto) 0.0 TH/MM3 CBC Comment DIFF FINAL Differential Comment Blood Urea Nitrogen 28 MG/DL Creatinine 1.95 MG/DL Random Glucose 120 MG/DL Total Protein 5.9 GM/DL Albumin 2.8 GM/DL Calcium Level 7.4 MG/DL Alkaline Phosphatase 78 U/L Aspartate Amino Transf (AST/SGOT) 195 U/L Alanine Aminotransferase (ALT/SGPT) 87 U/L Total Bilirubin 0.6 MG/DL Sodium Level 140 MEQ/L Potassium Level 4.0 MEQ/L Chloride Level 108 MEQ/L Carbon Dioxide Level 22.1 MEQ/L Anion Gap 10 MEQ/L Estimat Glomerular Filtration Rate 34 ML/MIN Protein Corrected Calcium 8.1 MG/DL Urine Color YELLOW Urine Turbidity CLEAR Urine pH 5.5 Urine Specific [place] 1.021 Urine Protein TRACE mg/dL Urine Glucose (UA) NEG mg/dL Urine Ketones NEG mg/dL Urine Occult Blood NEG Urine Nitrite NEG Urine Bilirubin NEG Urine Urobilinogen LESS THAN 2.0 MG/DL Urine Leukocyte Esterase NEG Urine RBC LESS THAN 1 /hpf Urine WBC LESS THAN 1 /hpf Urine Mucus FEW /lpf Microscopic Urinalysis Comment CULT NOT INDICATED Imaging Last 24 hours Impressions Renal Ultrasound 02/22/18 0000 Signed Impressions: CONCLUSION: 1. 1.2 cm lower pole cyst on the right 2. Probable 8 and 9 mm stone on the right respectively. Noncontrast CT scan ma y be of benefit to confirm. Assessment and Plan Problem List: (1) NSTEMI (non-ST elevated myocardial infarction) ICD Codes: I21.4 - Non-ST elevation (NSTEMI) myocardial infarction Status: Acute (2) CAD (coronary artery disease) ICD Codes: I25.10 - Atherosclerotic heart disease of [place] coronary artery without angina pectoris (3) Tobacco abuse ICD Codes: Z72.0 - Tobacco use (4) Cardiomyopathy ICD Codes: I42.9 - Cardiomyopathy, unspecified (5) CRI (chronic renal insufficiency) ICD Codes: N18.9 - Chronic kidney disease, unspecified Assessment and Plan 1.) CAD - pod # 2 bms x 2 lcx and bms x 2 rca, 90% mid lad, ef=45%, cri, continue aspirin, effient, arf, nonoliguric, renal following, f/u creatinine Epi Flores MD Feb 22, 2018 13:17
[2018-02-23] VITALS (15 sets, daily range): BP systolic 95–116; BP diastolic 52–62; PULSE 63–80; RESP 16–17; TEMP 98.2–98.9; O2SAT 96–98
[2018-02-23 05:23] LABS: AUTOMATED NEUTROPHIL # 6.2 TH/MM3 (1.8-7.7); BASOPHIL % 0.2 % (0.0-2.0); EOSINOPHIL # 0.2 TH/MM3 (0-0.4); EOSINOPHIL % 2.2 % (0.0-4.0); HEMATOCRIT 33.9 % (39.0-51.0); HEMOGLOBIN 11.6 GM/DL (13.0-17.0); LYMPHOCYTE # 1.7 TH/MM3 (1.0-4.8); MEAN CELL VOLUME 87.8 FL (80.0-100.0); MEAN CORPUSCULAR HGB CONC 34.2 % (32.0-36.0); MONO % 6.2 % (0.0-8.0); MONOCYTE # 0.5 TH/MM3 (0-0.9); NEUT % 71.4 % (16.0-70.0); PLATELET COUNT 132 TH/MM3 (150-450); RED BLOOD COUNT 3.86 MIL/MM3 (4.50-5.90); RED CELL DISTRIBUTION WIDTH 13.7 % (11.6-17.2); WHITE BLOOD COUNT 8.7 TH/MM3 (4.0-11.0)
[2018-02-23 05:40] LABS: ALBUMIN 2.8 GM/DL (3.4-5.0); ALT (GPT) 66 U/L (12-78); AST (GOT) 104 U/L (15-37); BICARBONATE 22.3 MEQ/L (21.0-32.0); BLOOD UREA NITROGEN 22 MG/DL (7-18); CALCIUM 7.6 MG/DL (8.5-10.1); CHLORIDE 108 MEQ/L (98-107); CREATININE 1.73 MG/DL (0.60-1.30); GLOMERULAR FILTRATION RATE 39 ML/MIN (>89); GLUCOSE,RANDOM 117 MG/DL (74-106); SODIUM (NA) 140 MEQ/L (136-145)
[2018-02-23 05:43] LABS: ALKALINE PHOSPHATASE 80 U/L (45-117); TOTAL BILIRUBIN ADULT 0.7 MG/DL (0.2-1.0); TOTAL PROTEIN 6.1 GM/DL (6.4-8.2)
[2018-02-23] MEDS: PRASUGREL 10 MG TAB PO SCH (08:31)
[2018-02-23] MEDS: ASPIRIN 81 MG CHEW TAB PO SCH (08:31)
[2018-02-23] MEDS: DOCUSATE SODIUM 50 MG/SENNA 8.6 MG TAB PO SCH (08:31)
[2018-02-23] MEDS: CARVEDILOL 3.125 MG TAB PO SCH (08:31)
[2018-02-23] MEDS: SODIUM CHLORIDE 0.9% FLUSH 10 ML FLUSH IV FLUSH SCH (08:33)
--- NOTE | 2018-02-23 09:03 | HHI.DS ---
Discharge Summary Admission Date Feb 20, 2018 at 16:36 Discharge Date: Feb 23, 2018 Admitting Diagnosis NSTEMI with hyper acute T-wave (1) CAD (coronary artery disease) ICD Code: I25.10 - Atherosclerotic heart disease of [place] coronary artery without angina pectoris (2) Tobacco abuse ICD Code: Z72.0 - Tobacco use (3) Cardiomyopathy ICD Code: I42.9 - Cardiomyopathy, unspecified (4) CRI (chronic renal insufficiency) ICD Code: N18.9 - Chronic kidney disease, unspecified (5) RYAN (acute kidney injury) ICD Code: N17.9 - Acute kidney failure, unspecified Procedures cardiac cath Brief History - From Admission 72-year-old man with a past medical history of hypertension, coronary renal disease who presented yesterday to the ED for evaluation of substernal chest pain described as stabbing compared to an elephant sitting on my chest with radiations to right upper extremity and associated with diaphoresis, which started its at 9 PM while patient was eating some yogurt. Patient states it initially felt as heartburn, however continues event after patient arrived in the ED. Cardiology was called for STEMI alert and patient underwent left heart catheterization with PCI. During my exam, he denies any chest pain or shortness of breath. CBC/BMP: 02/23/18 0449 02/23/18 0449 Significant Findings Laboratory Tests Test 02/20/18 15:02 02/20/18 23:14 02/21/18 04:53 02/22/18 06:27 White Blood Count 13.1 TH/MM3 (4.0-11.0) Neutrophils (%) (Auto) 73.7 % (16.0-70.0) 71.3 % (16.0-70.0) 72.3 % (16.0-70.0) Neutrophils # (Auto) 9.7 TH/MM3 (1.8-7.7) Blood Urea Nitrogen 21 MG/DL (7-18) 19 MG/DL (7-18) 28 MG/DL (7-18) Creatinine 1.59 MG/DL (0.60-1.30) 1.47 MG/DL (0.60-1.30) 1.95 MG/DL (0.60-1.30) Random Glucose 147 MG/DL (74-106) 117 MG/DL (74-106) 120 MG/DL (74-106) Calcium Level 7.9 MG/DL (8.5-10.1) 6.6 MG/DL (8.5-10.1) 7.4 MG/DL (8.5-10.1) Aspartate Amino Transf (AST/SGOT) 348 U/L (15-37) 195 U/L (15-37) Estimat Glomerular Filtration Rate 43 ML/MIN (>89) 47 ML/MIN (>89) 34 ML/MIN (>89) Total Creatine Kinase 2178 U/L (39-308) 1926 U/L (39-308) Creatine Kinase MB 368.6 NG/ML (0.5-3.6) 236.4 NG/ML (0.5-3.6) Creatine Kinase MB % 16.9 % (0.0-4.0) 12.3 % (0.0-4.0) Troponin I GREATER THAN 40.00 NG/ML Red Blood Count 3.94 MIL/MM3 (4.50-5.90) 3.96 MIL/MM3 (4.50-5.90) Hemoglobin 11.9 GM/DL (13.0-17.0) 11.9 GM/DL (13.0-17.0) Hematocrit 34.6 % (39.0-51.0) 35.0 % (39.0-51.0) Total Protein 5.6 GM/DL (6.4-8.2) 5.9 GM/DL (6.4-8.2) Chloride Level 109 MEQ/L (98-107) 108 MEQ/L (98-107) Protein Corrected Calcium 7.3 MG/DL (8.5-10.1) 8.1 MG/DL (8.5-10.1) Cholesterol Level 102 MG/DL (120-200) HDL Cholesterol 23.5 MG/DL (40.0-60.0) Platelet Count 131 TH/MM3 (150-450) Albumin 2.8 GM/DL (3.4-5.0) Alanine Aminotransferase (ALT/SGPT) 87 U/L (12-78) Test 02/22/18 11:35 02/23/18 04:49 Urine Mucus FEW /lpf (OCC) Red Blood Count 3.86 MIL/MM3 (4.50-5.90) Hemoglobin 11.6 GM/DL (13.0-17.0) Hematocrit 33.9 % (39.0-51.0) Platelet Count 132 TH/MM3 (150-450) Neutrophils (%) (Auto) 71.4 % (16.0-70.0) Blood Urea Nitrogen 22 MG/DL (7-18) Creatinine 1.73 MG/DL (0.60-1.30) Random Glucose 117 MG/DL (74-106) Total Protein 6.1 GM/DL (6.4-8.2) Albumin 2.8 GM/DL (3.4-5.0) Calcium Level 7.6 MG/DL (8.5-10.1) Aspartate Amino Transf (AST/SGOT) 104 U/L (15-37) Chloride Level 108 MEQ/L (98-107) Estimat Glomerular Filtration Rate 39 ML/MIN (>89) Imaging Last Impressions Renal Ultrasound 02/22/18 0000 Signed Impressions: CONCLUSION: 1. 1.2 cm lower pole cyst on the right 2. Probable 8 and 9 mm stone on the right respectively. Noncontrast CT scan ma y be of benefit to confirm. Chest X-Ray 02/20/18 5089 Signed Impressions: CONCLUSION: The lungs are clear. PE at Discharge GENERAL: This is a well-nourished, well-developed patient, in no apparent distress. CARDIOVASCULAR: Regular rate and rhythm without murmurs, gallops, or rubs. RESPIRATORY: Clear to auscultation. Breath sounds equal bilaterally. No wheezes , rales, or rhonchi. GASTROINTESTINAL: Abdomen soft, non-tender, nondistended. No hepato-splenomegaly , or palpable masses. No guarding. MUSCULOSKELETAL: Extremities without clubbing, cyanosis, or edema. No joint tenderness, effusion, or edema noted. No calf tenderness. Negative Homans sign bilaterally. NEUROLOGICAL: Awake and alert. Cranial nerves II through XII intact. Motor and sensory grossly within normal limits. Five out of 5 muscle strength in all muscle groups. Normal speech. Pt update on day of discharge Feels much better. He is ambulating in the room without any problems. No chest pain shortness of breath no lightheadedness or palpitations. No nausea or diaphoresis. Had a bowel movement. Kidney function improved significantly. Cleared by consultants for discharge. Hospital Course 72-year-old man with Non-ST elevation LA Status post left heart catheterization with PCI Continue aspirin, Effient Add carvedilol Secondary To elevated AST, statin is contraindicated Management per cardiology Chronic kidney disease stage II-III. Chronic, continue to monitor creatinine. Unknown Cr baseline. UA normal, kidney US reviewed with 8 mm right kidney stome however patient is asymptomatic. Encourage PO intake. Consult nephro patient kidney function improves., Cleared by nephrology for discharge to follow-up as Hypocalcemia Give calcium gluconate 1 g IV 1 and monitor Code Status Full code Discussed Condition With Patient, nurse Patient improved significantly. Kidney function is improved. Cleared by consultants for discharge. Patient to follow-up as outpatient with PCP and consultants. Discharged home in stable condition. Pt Condition on Discharge: Stable Discharge Disposition: Disch w/ Home Health Serv Discharge Time: > 30 minutes Discharge Instructions DIET: Follow Instructions for: Heart Healthy Diet Activities you can perform: Regular-No Restrictions Follow up Referrals: Cardiology - 1 Week Nephrology - 1 Week PCP Follow-up - 2-3 Days New Medications: Carvedilol (Carvedilol) 3.125 Mg Tab 3.125 MG PO BID, #60 TAB 0 Refills Aspirin (Tgt Aspirin) 81 Mg Chw 162 MG PO DAILY for Blood Clot Prevention, #60 EA Prasugrel (Effient) 10 Mg Tab 10 MG PO DAILY for Blood Clot Prevention, #60 TAB Continued Medications: Calcitriol (Calcitriol) 0.25 Mcg Cap 0.25 MCG PO DAILY for Calcium Supplement, #30 CAP 0 Refills Valsartan (Valsartan) 40 Mg Tab 40 MG PO DAILY, #60 TAB 0 Refills Akilah Juan MD Feb 23, 2018 09:03
--- NOTE | 2018-02-23 09:53 | HHI.NPPN ---
Subjective Renal Failure: Chronic, Acute, Stage III Interval History Renal function improved slightly. He wants to be discharged. (Chaya Pizarro) Objective Data Data Vital Signs Date Time Temp Pulse Resp B/P (MAP) Pulse Ox O2 Delivery O2 Flow Rate FiO2 02/23/18 09:00 68 02/23/18 08:33 104/56 (72) 02/23/18 08:00 75 02/23/18 07:30 98.4 70 17 95/52 (66) 97 02/23/18 07:15 69 02/23/18 06:26 80 02/23/18 04:00 63 02/23/18 04:00 98.9 71 16 116/58 (77) 96 02/23/18 03:00 69 02/23/18 02:00 64 02/23/18 01:00 66 02/23/18 00:00 65 02/22/18 23:10 98.9 65 16 100/57 (71) 96 02/22/18 23:00 64 02/22/18 22:00 62 02/22/18 21:00 65 02/22/18 21:00 98.7 70 20 108/69 (82) 98 02/22/18 20:15 70 02/22/18 18:00 65 02/22/18 17:00 72 02/22/18 16:00 70 02/22/18 15:00 98.0 64 20 101/58 (72) 98 02/22/18 15:00 63 02/22/18 14:00 64 02/22/18 13:00 89 02/22/18 12:00 77 02/22/18 11:00 98.8 70 20 101/56 (71) 99 02/22/18 11:00 69 02/22/18 10:00 68 (Chaya Pizarro) -: 02/23/18 0449 02/23/18 0449 Imaging Last 72 hours Impressions Renal Ultrasound 02/22/18 0000 Signed Impressions: CONCLUSION: 1. 1.2 cm lower pole cyst on the right 2. Probable 8 and 9 mm stone on the right respectively. Noncontrast CT scan ma y be of benefit to confirm. Chest X-Ray 02/20/18 1709 Signed Impressions: CONCLUSION: The lungs are clear. (Chaya Pizarro) Physical Exam General Appearance: Well Developed, Well Nourished, No Acute Distress, Comfortable (Chaya Pizarro) Eyes Eye Exam: Pupils Equal (Chaya Pizarro) Throat Throat Exam: Oral Mucosa [place] & Moist (Chaya Pizarro) Pulmonary Resp Exam: Clear Bilaterally, Breath Sounds Equal (Chaya Pizarro) Cardiology CV Exam: Regular, Normal Sinus Rhythm (Chaya Pizarro) Gastrointestinal/Abdomen GI Exam: Soft, Non-Tender, Bowel Sounds Present (Chaya Pizarro) Musculoskeletal MS Exam: Joints Intact, Normal Tone (Chaya Pizarro) Integumentary Skin Exam: Warm, Dry, Intact (Chaya Pizarro) Extremeties Extremities Exam: No Edema, Pedal Pulses Palpable (Chaya Pizarro) Neurologic Neuro Exam: Alert, Awake, Oriented, Speech Clear, Moving All Extremities (Chaya Pizarro) Psychiatric Psych Exam: Appropriate Responses (Chaya Pizarro) Assessment/Plan Discussed Condition With: Patient Assessment Summary: RYAN/Acute Renal Failure Problem List: (1) RYAN (acute kidney injury) ICD Codes: N17.9 - Acute kidney failure, unspecified Plan: RYAN on CKD 3 RYAN most likely contrast induced nephropathy Renal function is improving, expect continued improvement Tolerating oral fluids UA unremarkable He is non oliguric Advised to avoid nephrotoxic agents at discharge including NSAIDs He can be discharged, advised to follow with rest room maid back home (2) NSTEMI (non-ST elevated myocardial infarction) ICD Codes: I21.4 - Non-ST elevation (NSTEMI) myocardial infarction Status: Acute Plan: s/p 4 stents placed cardiology following (Chaya Pizarro) Plan patient was seen and examined. Renal function has improved. He can be discharged from renal standpoint. (Talib Rosales MD) Chaya Pizarro Feb 23, 2018 09:53 Talib Rosales MD Feb 23, 2018 11:30
--- NOTE | 2018-02-23 12:36 | PD.CARD.PN ---
Subjective Subjective Remarks assymptomatic in nad Objective Medications Current Medications Medications (Trade) Dose Ordered Sig/Darwin Route Start Time Stop Time Status Last Admin Nitroglycerin/ Dextrose 250 ml @ 1.5 mls/hr TITRATE PRN IV 02/20/18 16:30 02/20/18 16:54 Heparin Sodium/ Dextrose 250 ml @ 10 mls/hr TITRATE PRN IV 02/20/18 16:30 (NS Flush) 2 ml UNSCH PRN IV FLUSH 02/20/18 19:45 (NS Flush) 2 ml BID IV FLUSH 02/20/18 21:00 02/23/18 08:33 (Aspirin Chew) 162 mg DAILY PO 02/21/18 09:00 02/23/18 08:31 (Effient) 10 mg DAILY PO 02/21/18 09:00 02/23/18 08:31 (Narcan Inj) 0.4 mg UNSCH PRN IV PUSH 02/22/18 08:45 (Santa-Colace) 1 tab BID PO 02/22/18 09:00 02/22/18 23:21 (Milk Of Magnesia Liq) 30 ml Q12H PRN PO 02/22/18 08:45 (Senokot) 17.2 mg Q12H PRN PO 02/22/18 08:45 (Dulcolax Supp) 10 mg DAILY PRN RECTAL 02/22/18 08:45 (Lactulose Liq) 30 ml DAILY PRN PO 02/22/18 08:45 (Coreg) 3.125 mg Q12HR PO 02/22/18 09:30 02/23/18 08:31 Vital Signs / I&O Vital Signs Date Time Temp Pulse Resp B/P (MAP) Pulse Ox O2 Delivery O2 Flow Rate FiO2 02/23/18 12:00 65 02/23/18 11:00 98.2 65 16 103/62 (76) 98 02/23/18 11:00 66 02/23/18 10:00 66 02/23/18 09:00 68 02/23/18 08:33 104/56 (72) 02/23/18 08:00 75 02/23/18 07:30 98.4 70 17 95/52 (66) 97 02/23/18 07:15 69 02/23/18 06:26 80 02/23/18 04:00 63 02/23/18 04:00 98.9 71 16 116/58 (77) 96 02/23/18 03:00 69 02/23/18 02:00 64 02/23/18 01:00 66 02/23/18 00:00 65 02/22/18 23:10 98.9 65 16 100/57 (71) 96 02/22/18 23:00 64 02/22/18 22:00 62 02/22/18 21:00 65 02/22/18 21:00 98.7 70 20 108/69 (82) 98 02/22/18 20:15 70 02/22/18 18:00 65 02/22/18 17:00 72 02/22/18 16:00 70 02/22/18 15:00 98.0 64 20 101/58 (72) 98 02/22/18 15:00 63 02/22/18 14:00 64 02/22/18 13:00 89 I/O 02/22/18 02/22/18 02/22/18 02/23/18 02/23/18 02/23/18 06:59 14:59 22:59 06:59 14:59 22:59 Intake Total 240 ml 100 ml 720 ml 240 ml Output Total 900 ml 700 ml Balance 240 ml 100 ml -180 ml -460 ml Intake Oral 240 ml 720 ml 240 ml IV Total 100 ml Output Urine Total 900 ml 700 ml # Voids 2 # Bowel Movements 0 Physical Exam GENERAL: SKIN: Warm and dry. HEAD: Normocephalic. EYES: No scleral icterus. No injection or drainage. NECK: Supple, trachea midline. No JVD or lymphadenopathy. CARDIOVASCULAR: Regular rate and rhythm without murmurs, gallops, or rubs. RESPIRATORY: Breath sounds equal bilaterally. No accessory muscle use. GASTROINTESTINAL: Abdomen soft, non-tender, nondistended. MUSCULOSKELETAL: No cyanosis, or edema. BACK: Nontender without obvious deformity. No CVA tenderness. Laboratory Laboratory Tests Test 02/23/18 04:49 White Blood Count 8.7 TH/MM3 Red Blood Count 3.86 MIL/MM3 Hemoglobin 11.6 GM/DL Hematocrit 33.9 % Mean Corpuscular Volume 87.8 FL Mean Corpuscular Hemoglobin 30.0 PG Mean Corpuscular Hemoglobin Concent 34.2 % Red Cell Distribution Width 13.7 % Platelet Count 132 TH/MM3 Mean Platelet Volume 9.0 FL Neutrophils (%) (Auto) 71.4 % Lymphocytes (%) (Auto) 20.0 % Monocytes (%) (Auto) 6.2 % Eosinophils (%) (Auto) 2.2 % Basophils (%) (Auto) 0.2 % Neutrophils # (Auto) 6.2 TH/MM3 Lymphocytes # (Auto) 1.7 TH/MM3 Monocytes # (Auto) 0.5 TH/MM3 Eosinophils # (Auto) 0.2 TH/MM3 Basophils # (Auto) 0.0 TH/MM3 CBC Comment DIFF FINAL Differential Comment Blood Urea Nitrogen 22 MG/DL Creatinine 1.73 MG/DL Random Glucose 117 MG/DL Total Protein 6.1 GM/DL Albumin 2.8 GM/DL Calcium Level 7.6 MG/DL Alkaline Phosphatase 80 U/L Aspartate Amino Transf (AST/SGOT) 104 U/L Alanine Aminotransferase (ALT/SGPT) 66 U/L Total Bilirubin 0.7 MG/DL Sodium Level 140 MEQ/L Potassium Level 3.9 MEQ/L Chloride Level 108 MEQ/L Carbon Dioxide Level 22.3 MEQ/L Anion Gap 10 MEQ/L Estimat Glomerular Filtration Rate 39 ML/MIN Assessment and Plan Problem List: (1) NSTEMI (non-ST elevated myocardial infarction) ICD Codes: I21.4 - Non-ST elevation (NSTEMI) myocardial infarction Status: Acute (2) CAD (coronary artery disease) ICD Codes: I25.10 - Atherosclerotic heart disease of [place] coronary artery without angina pectoris (3) Tobacco abuse ICD Codes: Z72.0 - Tobacco use (4) Cardiomyopathy ICD Codes: I42.9 - Cardiomyopathy, unspecified (5) CRI (chronic renal insufficiency) ICD Codes: N18.9 - Chronic kidney disease, unspecified Assessment and Plan 1.) CAD - pod # 3 bms x 2 lcx and bms x 2 rca, 90% mid lad, ef=45%, cri, ok to dc from cv standpoint on aspirin, effient, coreg, reagan held due to arf, arf improved, nonoliguric, statin held due to elevated lfts, f/u with me in office , d/w patient and nurse Epi Flores MD Feb 23, 2018 12:36
== END 2018-02-23 15:07 | disposition home health service (06) | DRG 248 ==
LOC: NEPE 14:46 → NEDA 16:36 → HCPC 19:37
PROVIDERS: ADMIT Hospitalist; ATTEND Hospitalist
PROC: 02713GZ Dilation of Coronary Artery, Two Arteries with Four or More Intraluminal Devices, Percutaneous Approach (ICD-10-PCS; principal; 2018-02-20)
PROC: 4A023N7 Measurement of Cardiac Sampling and Pressure, Left Heart, Percutaneous Approach (ICD-10-PCS; 2018-02-20)
PROC: B2111ZZ Fluoroscopy of Multiple Coronary Arteries using Low Osmolar Contrast (ICD-10-PCS; 2018-02-20)
PROC: B2151ZZ Fluoroscopy of Left Heart using Low Osmolar Contrast (ICD-10-PCS; 2018-02-20)
PROC: B3101ZZ Fluoroscopy of Thoracic Aorta using Low Osmolar Contrast (ICD-10-PCS; 2018-02-20)
DX: I21.4 Non-ST elevation (NSTEMI) myocardial infarction (principal); N17.9 Acute kidney failure, unspecified; I42.9 Cardiomyopathy, unspecified; R00.1 Bradycardia, unspecified; E83.51 Hypocalcemia; N14.1 Nephropathy induced by other drugs, medicaments and biological substances; N18.3 Chronic kidney disease, stage 3 (moderate); I12.9 Hypertensive chronic kidney disease with stage 1 through stage 4 chronic kidney disease, or unspecified chronic kidney disease; I25.119 Atherosclerotic heart disease of native coronary artery with unspecified angina pectoris; Z87.891 Personal history of nicotine dependence; T50.8X5A Adverse effect of diagnostic agents, initial encounter
CPT/HCPCS: 71046; 76775; 80048; 80053; 80061; 81001; 82550; 82552; 83690; 83735; 84155; 84484; 85002; 85025; 85610; 85730; 92928; 92929; 93005; 93458; 93567; 99152; 99153; 99291; C1725; C1769; C1876; C1887; C1893; J0610; J1644; J2250; J2405; J3010; J3246; J7030; Q9967